=== PATIENT | male | born 1950 | race Caucasian/White ===

== ENCOUNTER 2024-10-25 02:42 | Emergency (ER) | payer MEDICAID, OTHER ==
--- OUTSIDE RECORDS SUMMARY | 2024-10-25 02:51 | XMS REPORT | Continuity of Care Document ---
Author Name Unknown Address [address] [facility]. [address] [place] [address] [facility] thconnect Address [address] 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 Name Role Phone Bonnie Gordon MD Primary Care Physician No, PCP Attending Clinician Unavailable Bonnie Gordon Attending Clinician Unavailable KASI SALAZAR Attending Clinician UnaMAX Haines Attending Clinician Unavailable SARAH BONE Attending Clinician Unavailable RHIANNON SANTIZO Attending Clinician Unavailab Greg Cervantes Attending Clinician DOMITILA Connor Attending Clinician Unavailable ESPERANZA BEAL Attending Clinician Unavailab le LAB90 Attending Clinician Unavailable JACINDA SHARPE Attending Clinician Unavailab le LAB08 Attending Clinician Unavailable ANGELIA LAMA Attending Clinician Unavailable BONNIE GORDON Attending Clinician Unava ilBREEZY Ordonez Attending Clinician Unavailable Hollis Jauregui Attending Clinician Unavailable OCTAVIANO FRIEND Attending Clinician Unavailable ARISTEO HUYNH Attending Clinician Unavailable ALBERTO BRASHER Attending Clinician Unavailchristie STRATTON MD Attending Clinician Unavailab le A-SCAN Attending Clinician Unavailable [id number] Attending Clinician Unavailable DANIEL TUCKER Attending Clinician UnavailCYNTHIA Merida Attending Clinician Unavailable HINA AMARAL Attending Clinician Unavailab FELA Ho Attending Clinician Unavailable ENG Attending Clinician Unavailable SUYAPA MCCRAY Attending Clinician Unavailab le LAB39 Attending Clinician Unavailable LUZ MARIA LOUIS Attending Clinician Unavailable [id number] Attending Clinician Unavailable Alexander CALDERON, Esperanza Attending Clinician [phone] Destniy GODFREY-CAnh Attending Clinician [phone] Ermelinda CALDERON, Carolina Palm Attending Clinician [phone] Rosa Elena Kelly NP Attending Clinician [phone] PROVIDERJULIANA Attending Clinician Unavailable Kaycee COMMUNITY LIVING INSTRUCTOR-CBreezy Attending Clinician [phone] Hollis Jauregui Admitting Clinician Unavailable Payers Payer Name Policy Type Policy Number Effective Date Expirati on Date Source [facility] 16 [id number] 00:00:00 MEDICARE-PART B 5 [id number] 2021 00:00:00 [facility] SUPPLEMENT 4 [id number] 2021 00:00:00 Problems Condition Name Condition Details Condition Category Status Onset Date Resolution Date Last Treatment Date Treating Clinician Comments Source Well adult exam Well adult exam Disease Active 2023-11 0-04 00:00: 00 Norah schafer Chronic diastolic CHF (congestiv e heart failure) (multi HCC) Chronic diastolic CHF (congestiv e heart failure) (multi HCC) Disease Active 8- 00:00: 00 Norah schafer Chronic systolic (congestiv e) heart failure (multi HCC) Chronic systolic (congestiv e) heart failure (multi HCC) Disease Active 8-26 00:00: 00 Norah Seybold - Externa l 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 Disease Active 3-04 00:00: 00 Norah Seybold - Externa l Atrial fibrillati on (multi HCC) Atrial fibrillati on (multi HCC) Disease Active 12-19 00:00: 00 Norah Seybold - Externa l Hypercoagu lable state due to atrial fibrillati on (multi HCC) Hypercoagu lable state due to atrial fibrillati on (multi HCC) Disease Active 12-19 00:00: 00 Norah Seybold - Externa l Chronic anticoagul ation Chronic anticoagul ation Disease Active 12-19 00:00: 00 Norah Seybold - Externa l Renal insufficie ncy Renal insufficie ncy Disease Active 12-19 00:00: 00 Norah Markhamold - Externa l Cataract Cataract Disease Active 06-17 00:00: 00 Norah Seybold - Externa l Seasonal allergic rhinitis due to pollen Seasonal allergic rhinitis due to pollen Disease Active 06-17 00:00: 00 Norah Seybold - Externa l Obstructiv e sleep apnea Obstructiv e sleep apnea Disease Active 06-17 00:00: 00 Norah Seybold - Externa l Risk for falls Risk for falls Disease Active 06-17 00:00: 00 Norah Seybold - Externa l Benign prostatic hyperplasi a with weak urinary stream Benign prostatic hyperplasi a with weak urinary stream Disease Active 04-18 00:00: 00 Norah Seybold - Externa l Immunodefi ciency due to conditions classified elsewhere (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 (multi HCC) Disease Active 01-19 00:00: 00 Norah Seybold - Externa l Bronchitis Bronchitis Disease Active 1- 00:00: 00 Norah Seybold - Externa l Chronic obstructiv e pulmonary disease, unspecifie d COPD type (multi HCC) Chronic obstructiv e pulmonary disease, unspecifie d COPD type (multi HCC) Disease Active 7-13 00:00: 00 Norah Seybold - Externa l Venous stasis dermatitis of both lower extremitie s Venous stasis dermatitis of both lower extremitie s Disease Active 2020-11 00:00: 00 Norah Seybold - Externa l Peripheral edema Peripheral edema Disease Active 2020-11 00:00: 00 Norah Seybold - Externa l Cellulitis of right lower extremity Cellulitis of right lower extremity Disease Active 2020-11 00:00: 00 Norah Seybold - Externa l PVD (periphera l vascular disease) PVD (periphera l vascular disease) Disease Active 2020-11 00:00: 00 Norah Seybold - Externa l Venous stasis dermatitis of both lower extremitie s Venous stasis dermatitis of both lower extremitie s Disease Active 2020-11 00:00: 00 Norah Seybold - Externa l Irregular heart rhythm Irregular heart rhythm Disease Active 2020-11 00:00: 00 Norah Seybold - Externa l DM type 2 with diabetic mixed hyperlipid emia (multi HCC) DM type 2 with diabetic mixed hyperlipid emia (multi HCC) Disease Active 05-19 00:00: 00 Norah Seybold - Externa l Morbid obesity Morbid obesity Disease Active 05-19 00:00: 00 Norah Seybold - Externa l Class 3 severe obesity due to excess calories with serious comorbidit y and body mass index (BMI) of 40.0 to 44.9 in adult Class 3 severe obesity due to excess calories with serious comorbidit y and body mass index (BMI) of 40.0 to 44.9 in adult Disease Active 05-19 00:00: 00 Norah Seybold - Externa l Type 2 diabetes mellitus, without long-term current use of insulin (multi HCC) Type 2 diabetes mellitus, without long-term current use of insulin (multi HCC) Disease Active 05-19 00:00: 00 Norah Seybold - Externa l Hyperlipid emia due to type 2 diabetes mellitus (multi HCC) Hyperlipid emia due to type 2 diabetes mellitus (multi HCC) Disease Active 05-19 00:00: 00 Norah Lazara gilmar Essential hypertensi on Essential hypertensi on Disease Active 05-19 00:00: 00 Norah Lazara gilmar Urinary incontinen ce Urinary incontinen ce Problem [facility] [id number] Injury of left hand, initial encounter Problem [facility] [id number] Pain, joint, hand, left Problem [facility] Lower urinary tract symptoms due to benign prostatic hypertroph y Benign prostatic hyperplasi a (BPH) with straining on urination Problem [facility] [id number] BPH loc w urin obs/LUTS Problem [facility] [id number] Recurrent UTI Problem [facility] Allergies, Adverse Reactions, Alerts Allergy Name Allergy Type Status Severity Reaction(s) Onset Date Inactive Date Treating Clinician Comments Source codeine DA Active U DOES NOT RECALL 2023-11 00:00: 00 [facility] nitrofur antoin DA Active U SHORTNESS OF BREATH 2023-11 00:00: 00 [facility] codeine DA Active U UNKNOWN - 00:00: 00 [facility] Penicill ins DA Active MO HIVES 2-12 00:00: 00 [facility] Codeine Propensi ty to adverse reaction s Active 04-18 00:00: 00 Other reaction( s): Unknown Norahorxana Gonzales - Externa l Nitrofur antoin Propensi ty to adverse reaction s Active 2021-11 0-05 00:00: 00 Other reaction( s): Unknown Norah Gonzales - Externa l Nitrofur antoin Monohyd Macro Propensi ty to adverse reaction s Active Shortness of Breath 9-08 00:00: 00 Norah Tirado Externa l Penicill ins Propensi ty to adverse reaction s Active Hives 6-19 00:00: 00 Norah Gonzales - Externa l Penicill ins Propensi ty to adverse reaction s Active Hives 05-16 00:00: 00 Norah Gonzales codeine codeine Active Unknown [facility] nitrofur antoin nitrofur antoin Active Unknown [facility] Social History Social Habit Start Date Stop Date Quantity Comments Source Gender identity 2021-05-16 10:20:26 Identifies as male gender (finding) Norah Gonzales - External Sexual orientation 2021-05-16 10:20:26 Heterosexual (finding) Norah Gonzales - External Exposure to SARS-CoV-2 (event) Not sure Norah leigh History of tobacco use Current smoker Norah cameron - External Sex Assigned At [facility] Alcoholic beverage intake 2024-08-31 00:00:00 2024-08-31 00:00:00 1 /d Norah Gonzales - External Alcohol intake 2024-02-02 00:00:00 2024-02-02 00:00:00 1 /d Norah Gonzales - External History of Social function 2023-08-09 00:00:00 2023-08-09 00:00:00 Norah Gonzales - External Tobacco use and exposure 2023-04-13 00:00:00 2023-04-13 00:00:00 Smokeless tobacco non-user Norah Gonzales - External Sex 2021-02-24 17:10:48 2021-02-24 17:10:48 Male (finding) Norah Gonzales - External Smoking Status Start Date Stop Date Source Ex-smoker 2023-04-13 00:00:00 2023-04-13 00:00:00 Tyra Gonzales - External Medications Ordered Medication Name Filled Medication Name Start Date Stop Date Current Medication? Ordering Clinician Indication Dosage Frequency Signature (SIG) Comments Components Source Probiotic Product (PROBIOTIC DAILY OR) 2023-11 15:48: 42 Yes Take by mouth Norah schafer FLUTICASONE PROPIONATE, NASAL, 50 MCG/ACT nasal Suspension 2023-11 15:48: 38 08-31 00:00 :00 No 50ug QD Use 1 spray (50 mcg total) in each nostril daily. Norah schafer Diltiazem HCl Coated Beads 360 MG oral Capsule 24 Hour Sustained Release 2023-11 0 00:00: 00 Yes [id number] 360mg QD Take 1 capsule (360 mg total) by mouth daily. Norah schafer Finasteride 5 MG oral Tablet 2023-11 00:00: 00 Yes [id number] 5mg QD Take 1 tablet (5 mg total) by mouth daily. Norah schafer Tirzepatide (Mounjaro) 2.5 MG/0.5ML subcutaneou s Solution Pen-injecto r 2023-11 00:00: 00 Yes [id number] 3 2.5mg Q1W Inject 0.5 mL (2.5 mg total) into the skin once a week. Norah schafer Sacubitril- Valsartan (Entresto) 97-103 MG oral Tablet 2023-11 00:00: 00 Yes [id number] 1{tbl} Q.5D Take 1 tablet by mouth 2 times daily. Norah schafer Montelukast (Singulair) 10 MG oral Tablet tablet 2023-11 00:00: 00 Yes [id number] 10mg QD Take 1 tablet (10 mg total) by mouth nightly. Norah schafer Metoprolol Tartrate (LOPRESSOR) 25 MG oral Tablet 2023-11 00:00: 00 08-31 00:00 :00 Yes [id number] 25mg QD Take 1 tablet (25 mg total) by mouth daily. Norah schafer Probiotic Product (PROBIOTIC DAILY OR) 08-08 14:42: 24 Yes Take by mouth Norah schafer FLUTICASONE PROPIONATE, NASAL, 50 MCG/ACT nasal Suspension 08-08 14:42: 24 Yes 50ug QD Use 1 spray (50 mcg total) in each nostril daily. Norah schafer Probiotic Product (PROBIOTIC DAILY OR) 07-12 14:48: 07 Yes Take by mouth Norah schafer FLUTICASONE PROPIONATE, NASAL, 50 MCG/ACT nasal Suspension 07-12 14:48: 07 Yes 50ug QD Use 1 spray (50 mcg total) in each nostril daily. Norah schafer Tamsulosin HCl 0.4 MG oral Capsule 15 00:00: 00 Yes Take 1 capsule by mouth twice a day. Norah schafer Entresto 97-103 MG oral Tablet 8-13 00:00: 00 08-31 00:00 :00 No Norah schafer Finasteride 5 MG oral Tablet 6-07 00:00: 00 08-31 00:00 :00 No [id number] 5mg QD Take 1 tablet (5 mg total) by mouth daily. Norah schafer Pravastatin Sodium 40 MG oral Tablet 24 00:00: 00 Yes TAKE 1 TABLET DAILY Norah schafer Pravastatin Sodium 40 MG oral Tablet 24 00:00: 00 Yes TAKE 1 TABLET DAILY Norah schafer Pravastatin Sodium 40 MG oral Tablet 24 00:00: 00 Yes TAKE 1 TABLET DAILY Norah schafer Triamterene -HCTZ 37.5-25 MG oral Capsule 03-30 00:00: 00 Yes 1{capsu le} Take 1 capsule by mouth every morning. Norah schafer Triamterene -HCTZ 37.5-25 MG oral Capsule - 00:00: 00 Yes 1{capsu le} Take 1 capsule by mouth every morning. Norah schafer Triamterene -HCTZ 37.5-25 MG oral Capsule 03 00:00: 00 Yes 1{capsu le} Take 1 capsule by mouth every morning. Norah schafer FLUTICASONE PROPIONATE, NASAL, 50 MCG/ACT nasal Suspension 03-28 14:24: 40 Yes 50ug Use 1 spray (50 mcg total) in each nostril daily. Norah schafer Azelastine HCl 137 MCG/SPRAY nasal Solution 4-14 00:00: 00 08-31 00:00 :00 No [id number] 1{spray } Q.5D Use 1 spray in each nostril 2 times daily. Norah schafer Entresto 49-51 MG oral Tablet -11 00:00: 00 08-08 00:00 :00 No 1{tbl} Q.5D Take 1 tablet by mouth 2 times daily. Norah schafer OZEMPIC (0.25 or 0.5 mg/dose) 2 mg/3 mL SQ Solution Pen-Injecto r 18 00:00: 00 08-31 00:00 :00 No [id number] 9102 .25mg Q1W Inject 0.25 mg into the skin once a week. Norah schafer Metoprolol Tartrate (LOPRESSOR) 25 MG oral Tablet 02-07 00:00: 00 Yes 12.5mg QD Take 0.5 tablets (12.5 mg total) by mouth daily. Norah schafer Probiotic Product (PROBIOTIC DAILY OR) 02-01 15:29: 46 Yes Take by mouth Norah schafer FLUTICASONE PROPIONATE, NASAL, 50 MCG/ACT nasal Suspension 02-01 15:29: 46 Yes 50ug Use 1 spray (50 mcg total) in each nostril daily. Norah schafer Triamcinolo ne Acetonide 0.1 % apply externally Cream 02-01 00:00: 00 05-01 00:00 :00 No [id number] Apply to the affected areas of the rash on the back BID for 14 days in a row. Take a break for 3-4 days. Repeat for total of 4 weeks. Avoid overuse to prevent skin thinning and discolorat ion.. Norah schafer Diltiazem HCl Coated Beads 360 MG oral Capsule 24 Hour Sustained Release 01-30 00:00: 00 08-31 00:00 :00 No 360mg QD Take 1 capsule (360 mg total) by mouth daily. Norah schafer Loratadine (CLARITIN) 10 MG oral tablet 01-29 15:12: 36 01-29 00:00 :00 No 10mg Take 1 tablet (10 mg total) by mouth daily. Norah schafer Probiotic Product (PROBIOTIC DAILY OR) 01-29 15:12: 03 Yes Take by mouth Norah schafer FLUTICASONE PROPIONATE, NASAL, 50 MCG/ACT nasal Suspension 01-29 15:12: 03 Yes 50ug Use 1 spray (50 mcg total) in each nostril daily. Norah schafer Azelastine HCl 137 MCG/SPRAY nasal Solution 01-16 00:00: 00 Yes [id number] 1{spray } Use 1 spray in each nostril 2 times daily. Norah schafer Finasteride 5 MG oral Tablet 01-10 00:00: 00 Yes [id number] 5mg Take 1 tablet (5 mg total) by mouth daily. Norah schafer OZEMPIC (0.25 or 0.5 mg/dose) 2 mg/3 mL SQ Solution Pen-Injecto r 12-19 00:00: 00 Yes [id number] 9102 .25mg Inject 0.25 mg into the skin once a week. Norah schafer Metformin HCl 1000 MG oral Tablet 12-19 00:00: 00 Yes [id number] 9102 1000mg QD Take 1 tablet (1,000 mg total) by mouth daily (with breakfast) . Norah schafer Eliquis 5 MG oral Tablet 12-14 00:00: 00 Yes [id number] 5mg Q.5D Take 1 tablet (5 mg total) by mouth 2 times daily. Norah schafer Probiotic Product (PROBIOTIC DAILY OR) 2022-11 14:12: 13 Yes Take by mouth Norah schafer FLUTICASONE PROPIONATE, NASAL, 50 MCG/ACT nasal Suspension 2022-11 14:12: 13 Yes 50ug Use 1 spray (50 mcg total) in each nostril daily. Norah schafer Loratadine (CLARITIN) 10 MG oral tablet 2022-11 14:12: 13 Yes 10mg Take 1 tablet (10 mg total) by mouth daily. Norah schafer Azelastine HCl 0.1 % nasal Solution 2022-11 00:00: 00 Yes [id number] 1{spray } Use 1 spray in each nostril 2 times daily. Norah schafer Probiotic Product (PROBIOTIC DAILY OR) 2022-11 15:03: 25 Yes Take by mouth Norah schafer FLUTICASONE PROPIONATE, NASAL, 50 MCG/ACT nasal Suspension 2022-11 15:03: 25 Yes 50ug Use 1 spray (50 mcg total) in each nostril daily. Norah schafer Loratadine (CLARITIN) 10 MG oral tablet 2022-11 15:03: 25 Yes 10mg Take 1 tablet (10 mg total) by mouth daily. Norah schafer Guaifenesin (Mucinex) 600 MG oral Tablet 12 Hour Sustained Release 2022-11 00:00: 00 Yes [id number] 1200mg Take 2 tablets (1,200 mg total) by mouth 2 times daily. Norah schafer Benzonatate 200 MG oral Capsule 2022-11 00:00: 00 Yes [id number] 200mg Q.[id number] 3D Take 1 capsule (200 mg total) by mouth 3 times daily as needed for cough. Norah schafer Ketoconazol e 2 % apply externally Cream 2022-11 00:00: 00 05-01 00:00 :00 No Apply 1 applicatio n. topically 2 times daily. Norah schafer Hydrocortis one 2.5 % apply externally Cream 2022-11 00:00: 00 05-01 00:00 :00 No Apply 1 applicatio n. topically 2 times daily. Norah schafer Probiotic Product (PROBIOTIC DAILY OR) 2022-11 0 15:32: 11 Yes Take by mouth Norah schafer FLUTICASONE PROPIONATE, NASAL, 50 MCG/ACT nasal Suspension 2022-11 15:32: 11 Yes 50ug Use 1 spray (50 mcg total) in each nostril daily. Norah schafer Loratadine (CLARITIN) 10 MG oral tablet 2022-11 15:32: 11 Yes 10mg Take 1 tablet (10 mg total) by mouth daily. Norah schafer Metformin HCl 1000 MG oral Tablet 2022-11 00:00: 00 12-19 00:00 :00 No [id number] TAKE 1 TABLET EVERY MORNINGAND 1 TABLET IN THE EVENINGWIT H MEALS Norah schafer Azelastine HCl 0.1 % nasal Solution 2022-11 0 00:00: 00 Yes [id number] 1{spray } Use 1 spray in each nostril 2 times daily. Norah schafer Azithromyci n 250 MG oral Tablet 2022-11 00:00: 00 09-07 04:59 :00 No [id number] Take 2 tablets by mouth on day 1 then 1 tablet by mouth daily for 4 days thereafter .. Norah schafer Probiotic Product (PROBIOTIC DAILY OR) 2022-11 13:45: 55 Yes Take by mouth Norah schafer FLUTICASONE PROPIONATE, NASAL, 50 MCG/ACT nasal Suspension 2022-11 13:45: 55 Yes 50ug Use 1 spray (50 mcg total) in each nostril daily. Norah schafer Loratadine (CLARITIN) 10 MG oral tablet 2022-11 13:45: 55 Yes 10mg Take 1 tablet (10 mg total) by mouth daily. Norah schafer Probiotic Product (PROBIOTIC DAILY OR) 2022-11 15:51: 12 Yes Take by mouth Norah schafer FLUTICASONE PROPIONATE, NASAL, 50 MCG/ACT nasal Suspension 2022-11 0 15:51: 12 Yes 50ug Use 1 spray (50 mcg total) in each nostril daily. Norah schafer Loratadine (CLARITIN) 10 MG oral tablet 2022-11 0 15:51: 12 Yes 10mg Take 1 tablet (10 mg total) by mouth daily. Norah schafer Tamsulosin HCl 0.4 MG oral Capsule 08-15 00:00: 00 Yes .4mg Take 1 capsule (0.4 mg total) by mouth every night at bedtime. Norah schafer Triamterene -HCTZ 37.5-25 MG oral Capsule 08-11 00:00: 00 Yes 1{capsu le} Take 1 capsule by mouth every morning. Norah schafer Probiotic Product (PROBIOTIC DAILY OR) 08-10 15:15: 19 Yes Take by mouth Norah schafer FLUTICASONE PROPIONATE, NASAL, 50 MCG/ACT nasal Suspension 08-10 15:15: 19 Yes 50ug Use 1 spray (50 mcg total) in each nostril daily. Norah schafer Loratadine (CLARITIN) 10 MG oral tablet 08-10 15:15: 19 Yes 10mg Take 1 tablet (10 mg total) by mouth daily. Norah schafer Finasteride 5 MG oral Tablet 08-10 00:00: 00 Yes [id number] 5mg TAKE 1 TABLET (5 MG TOTAL) BY MOUTH DAILY. Norah schafer Probiotic Product (PROBIOTIC DAILY OR) 08-05 14:18: 04 Yes Take by mouth Norah schafer FLUTICASONE PROPIONATE, NASAL, 50 MCG/ACT nasal Suspension 08-05 14:18: 04 Yes 50ug Use 1 spray (50 mcg total) in each nostril daily. Norah schafer Loratadine (CLARITIN) 10 MG oral tablet 08-05 14:18: 04 Yes 10mg Take 1 tablet (10 mg total) by mouth daily. Norah schafer Probiotic Product (PROBIOTIC DAILY OR) 08-04 13:55: 20 Yes Take by mouth Norah schafer FLUTICASONE PROPIONATE, NASAL, 50 MCG/ACT nasal Suspension 08-04 13:55: 20 Yes 50ug Use 1 spray (50 mcg total) in each nostril daily. Norah schafer Loratadine (CLARITIN) 10 MG oral tablet 08-04 13:55: 20 Yes 10mg Take 1 tablet (10 mg total) by mouth daily. Norah schafer Moxifloxaci n HCl 0.5 % ophthalmic Solution 08-04 00:00: 00 10-10 00:00 :00 No 1[drp] Place 1 drop into the right eye 4 times daily. Norah schafer prednisoLON E Acetate 1 % ophthalmic Suspension 08-04 00:00: 00 10-10 00:00 :00 No 1[drp] Place 1 drop into the right eye 4 times daily. Norah schafer KETOROLAC TROMETHAMIN E, OPHTH, 0.5 % ophthalmic Solution 08-04 00:00: 00 10-10 00:00 :00 No 1[drp] Place 1 drop into the right eye 4 times daily. Norah schafer Loratadine (CLARITIN) 10 MG oral tablet 06-17 15:16: 51 Yes 10mg Take 1 tablet (10 mg total) by mouth daily Norah schafer FLUTICASONE PROPIONATE, NASAL, 50 MCG/ACT nasal Suspension 06-17 15:16: 42 Yes 50ug Use 1 spray (50 mcg total) in each nostril daily Norah schafer Mometasone Furoate 50 MCG/ACT nasal Suspension 06-17 15:16: 35 06-17 00:00 :00 No every 24 hours Norah schafer OZEMPIC (0.25 or 0.5 mg/dose) 2 mg/3 mL SQ Solution Pen-Injecto r 06-13 00:00: 00 12-19 00:00 :00 No [id number] .5mg Inject 0.5 mg into the skin once a week Norah schafer Albuterol HFA 108 (90 Base) MCG/ACT IN AERS 05-30 00:00: 00 Yes [id number] 2{puff} Q.25D Inhale 2 puffs into the lungs every 6 hours as needed for shortness of breath Norah schafer Irbesartan 300 MG oral Tablet 05-08 00:00: 00 Yes TAKE 1 TABLET DAILY Norah schafer Probiotic Product (PROBIOTIC DAILY OR) 05-06 14:20: 07 Yes Take by mouth Norah schafer Mometasone Furoate 50 MCG/ACT nasal Suspension 05-06 14:20: 07 Yes every 24 hours Norah schafer Probiotic Product (PROBIOTIC DAILY OR) 05-02 15:29: 35 Yes Take by mouth Norah schafer Mometasone Furoate 50 MCG/ACT nasal Suspension 05-02 15:29: 35 Yes every 24 hours Norah schafer Diltiazem HCl Coated Beads 360 MG oral Capsule 24 Hour Sustained Release 05-02 00:00: 00 Yes TAKE 1 CAPSULE DAILY Norah schafer Pravastatin Sodium 40 MG oral Tablet 05-02 00:00: 00 Yes TAKE 1 TABLET DAILY Norah schafer ASPIRIN OR 04-18 15:21: 53 04-18 00:00 :00 No Take by mouth Norah schafer Probiotic Product (PROBIOTIC DAILY OR) 04-18 15:09: 04 Yes Take by mouth Norah schafer Aspirin 325 MG oral Tablet 04-18 00:00: 00 Yes [id number] 325mg QD Take 1 tablet (325 mg total) by mouth daily Norah schafer Budeson-Gly copyrrol-Fo rmoterol (Breztri Aerosphere) 160-9-4.8 MCG/ACT inhalation Aerosol 04-18 00:00: 00 Yes [id number] 1{puff} QD Inhale 1 puff into the lungs daily Norah schafer Probiotic Product (PROBIOTIC DAILY OR) 17 13:54: 32 Yes Take by mouth Norah schafer ASPIRIN OR 04-13 13:54: 31 Yes Take by mouth Norah schafer Metformin HCl 1000 MG oral Tablet 17 00:00: 00 Yes [id number] 1000mg Take 1 tablet (1,000 mg total) by mouth in the morning and 1 tablet (1,000 mg total) in the evening. Take with meals. Norah schafer OZEMPIC (0.25 or 0.5 mg/dose) 2 mg/3 mL SQ Solution Pen-Injecto r 17 00:00: 00 Yes [id number] .5mg Inject 0.5 mg into the skin once a week Norah schafer Tamsulosin HCl 0.4 MG oral Capsule 404 00:00: 00 Yes .4mg Take 1 capsule (0.4 mg total) by mouth every night at bedtime Norah schafer Alfuzosin HCl 10 MG oral TABLET SR 24 HR 30 00:00: 00 Yes [id number] 10mg Take 1 tablet (10 mg total) by mouth daily Norah schafer Finasteride 5 MG oral Tablet 30 00:00: 00 Yes [id number] 5mg Take 1 tablet (5 mg total) by mouth daily Norah schafer OZEMPIC (0.25 or 0.5 mg/dose) 2 mg/1.5 mL SQ Solution Pen-Injecto r 02-22 00:00: 00 Yes [id number] .5mg Inject 0.5 mg into the skin once a week Norah schafer ASPIRIN OR -20 13:13: 06 Yes Take by mouth Norah schafer Metformin HCl 1000 MG oral Tablet 3-10 00:00: 00 Yes [id number] 1000mg Take 1 tablet (1,000 mg total) by mouth in the morning and 1 tablet (1,000 mg total) in the evening. Take with meals. Norah schafer OZEMPIC (0.25 or 0.5 mg/dose) 2 mg/1.5 mL SQ Solution Pen-Injecto r 3- 00:00: 00 Yes [id number] .25mg Inject 0.25 mg into the skin once a week Norah schafer Pravastatin Sodium 40 MG oral Tablet - 00:00: 00 Yes 40mg Take 1 tablet (40 mg total) by mouth daily Norah schafer ASPIRIN OR 01-27 14:16: 29 Yes Take by mouth Norah schafer Tamsulosin HCl 0.4 MG oral Capsule 01-25 00:00: 00 02-24 00:00 :00 No [id number] .4mg Take 1 capsule (0.4 mg total) by mouth every night at bedtime Norah schafer TRIMETHOPRI M-SULFAMETH OXAZOLE (BACTRIM DS) 800-160 MG oral Tablet 01-18 00:00: 00 01-26 05:59 :00 No [id number] 1{tbl} Take 1 tablet by mouth 2 times daily for 7 days Norah schafer ASPIRIN OR 01-03 15:03: 47 Yes Take by mouth Norah schafer OZEMPIC (0.25 or 0.5 mg/dose) 2 mg/1.5 mL SQ Solution Pen-Injecto r 01-03 00:00: 00 Yes [id number] .25mg Inject 0.25 mg into the skin once a week Norah schafer ASPIRIN OR 12-29 15:12: 09 Yes Take by mouth Norah schafer Benzonatate 200 MG oral Capsule - 00:00: 00 Yes [id number] 200mg Q.[id number] 3D Take 1 capsule (200 mg total) by mouth 3 times daily as needed for cough Norah schafer Cipro 500 MG Cipro 500 MG - 00:00: 00 12-25 00:00 :00 No 1{table t} BID Cipro 500 MG Cipro 500 MG Cipro 500 MG 12-18 00:00: 00 12-25 00:00 :00 No 1{table t} BID Cipro 500 MG ASPIRIN OR 12-06 16:19: 27 Yes Take by mouth Norah schafer predniSONE (DELTASONE) 10 MG oral tablet 12-06 00:00: 00 Yes [id number] 10mg Take 1 tablet (10 mg total) by mouth daily Norah schafer Doxycycline Hyclate 100 MG oral Capsule 12-06 00:00: 00 12-14 05:59 :00 No [id number] 100mg Take 1 capsule (100 mg total) by mouth 2 times daily for 7 days Norah schafer Benzonatate 200 MG oral Capsule 11-30 00:00: 00 Yes [id number] 200mg Q.[id number] 3D Take 1 capsule (200 mg total) by mouth 3 times daily as needed for cough Norah schafer Azithromyci n 250 MG oral Tablet 11-29 00:00: 00 Yes [id number] Take 2 tablets by mouth on day 1 then 1 tablet by mouth daily for 4 days thereafter . Norah schafer Metformin HCl 1000 MG oral Tablet 2021-11 00:00: 00 Yes [id number] 1000mg Take 1 tablet (1,000 mg total) by mouth in the morning and 1 tablet (1,000 mg total) in the evening. Take with meals. Norah schafer ASPIRIN OR 2021-11 14:32: 15 Yes Take by mouth Norah schafer Hydrocortis one 2.5 % apply externally Cream 2021-11 00:00: 00 06-17 00:00 :00 No [id number] Apply 1 applicatio n topically 2 times daily APPLY TO AFFECTED AREA Norah schafer Dapaglifloz in Propanediol (Farxiga) 5 MG oral Tablet 2021-11 00:00: 00 02-14 00:00 :00 No [id number] 1{tbl} Take 1 tablet by mouth daily Norah schafer Triamterene -HCTZ 37.5-25 MG oral Capsule 2021-11 0-14 00:00: 00 Yes TAKE 1 CAPSULE EVERY MORNING Norah schafer Hydrocortis one 2.5 % apply externally Cream 2021-11 0-13 00:00: 00 11-05 00:00 :00 No [id number] APPLY TO AFFECTED AREA TWICE A DAY Norah schafer KETOCONAZOL E, TOPICAL, 2 % apply externally Shampoo 08-04 00:00: 00 06-17 00:00 :00 No [id number] Lather onto buttocks and upper back, leave on for 5 minutes, wash off- do this 3-5/week Norah schafer Ketoconazol e 2 % apply externally Cream 08-04 00:00: 00 01-03 00:00 :00 No [id number] Apply to affected area twice a day Norah schafer predniSONE (DELTASONE) 10 MG oral tablet -05 00:00: 00 12-06 00:00 :00 No [id number] Take 4 tabs for 3 days, then take 3 tabs for 3 days, then take 2 tabs For 3 days, then 1 tab for 3 days. Norah schafer Albuterol HFA 108 (90 Base) MCG/ACT IN AERS -03 00:00: 00 Yes [id number] 2{puff} Q.25D Inhale 2 puffs into the lungs every 6 hours as needed for shortness of breath Norah schafer Diltiazem HCl Coated Beads 360 MG oral Capsule 24 Hour Sustained Release 8- 00:00: 00 Yes TAKE 1 CAPSULE DAILY Norah schafer Alfuzosin HCl 10 MG oral TABLET SR 24 HR 7-18 00:00: 00 01-25 00:00 :00 No TAKE 1 TABLET IMMEDIATEL Y AFTER THE SAME MEAL ONCE A DAY ORALLY Norah schafer Benzonatate (Tessalon Perles) 100 MG oral Capsule 05-11 00:00: 00 Yes [id number] 100mg Q.[id number] 3D Take 1 capsule (100 mg total) by mouth 3 times daily as needed for cough Norah schafer Cetirizine (ZyrTEC Allergy) 10 MG oral Tablet 05-11 00:00: 00 Yes [id number] 10mg Take 1 tablet (10 mg total) by mouth daily Norah schafer Pravastatin Sodium 40 MG oral Tablet 03-15 00:00: 00 Yes 40mg Take 1 tablet (40 mg total) by mouth daily Norah schafer Metformin HCl 1000 MG oral Tablet 03-15 00:00: 00 Yes 1000mg Take 1 tablet (1,000 mg total) by mouth in the morning and 1 tablet (1,000 mg total) in the evening. Norah schafer Irbesartan 300 MG oral Tablet 03-15 00:00: 00 Yes 300mg Take 1 tablet (300 mg total) by mouth daily Norah schafer ASPIRIN OR 2020-11 17:13: 59 Yes Take by mouth Norah Gonzales Cetirizine (ZyrTEC Allergy) 10 MG oral Tablet 2020-11 17:13: 59 Yes 10mg Take 10 mg by mouth daily Norah Gonzales Phenazopyri dine HCl 200 MG oral Tablet 2020-11 00:00: 00 Yes [id number] 200mg Q.[id number] 3D Take 1 tablet (200 mg total) by mouth 3 times daily as needed for pain Norah Gonzales TRIMETHOPRI M-SULFAMETH OXAZOLE 800-160 MG oral Tablet 2020-11 00:00: 00 09-26 04:59 :00 No [id number] 1{tbl} Take 1 tablet by mouth 2 times daily for 10 days Norah Gonzales ASPIRIN OR 2020-11- 14:04: 00 Yes Take by mouth Norah Gonzales Cetirizine (ZyrTEC Allergy) 10 MG oral Tablet 2020-11 14:04: 00 Yes 10mg Take 10 mg by mouth daily Norah Gonzales Clindamycin HCl 300 MG oral Capsule 2020-11 00:00: 00 04-01 00:00 :00 No [id number] 300mg Take 1 capsule (300 mg total) by mouth 3 times daily Norah Gonzales Budeson-Gly copyrrol-Fo rmoterol (Breztri Aerosphere) 160-9-4.8 MCG/ACT inhalation Aerosol 2020-11 00:00: 00 04-18 00:00 :00 No Norah Gonzales - Externa l Benzonatate (Tessalon Perles) 100 MG oral Capsule 07-22 00:00: 00 04-01 00:00 :00 No 100mg Q.[id number] 3D Take 1 capsule (100 mg total) by mouth 3 times daily as needed for cough Norah Gonzales Irbesartan 300 MG oral Tablet 07-20 00:00: 00 Yes 300mg Take 1 tablet (300 mg total) by mouth daily Norah Gonzales Metformin HCl 1000 MG oral Tablet 07-20 00:00: 00 Yes 1000mg Take 1 tablet (1,000 mg total) by mouth 2 times daily Norah Gonzales Pravastatin Sodium 40 MG oral Tablet 07-20 00:00: 00 Yes 40mg Take 1 tablet (40 mg total) by mouth daily Norah Gonzales Carvedilol 6.25 MG oral Tablet 07-20 00:00: 00 Yes 6.25mg Take 1 tablet (6.25 mg total) by mouth daily Norah Gonzales Dapaglifloz in Propanediol (Farxiga) 5 MG oral Tablet 07-20 00:00: 00 Yes [id number] 5mg Take 5 mg by mouth daily Norah Gonzales Diltiazem HCl Coated Beads 360 MG oral Capsule 24 Hour Sustained Release 07-20 00:00: 00 Yes 360mg Take 1 capsule (360 mg total) by mouth daily Norah Gonzales Triamterene -HCTZ 37.5-25 MG oral Capsule 07-20 00:00: 00 Yes 1{capsu le} Take 1 capsule by mouth every morning Norah Gonzales ASPIRIN OR 07-02 15:30: 18 Yes Take by mouth Norah Gonzales Cetirizine (ZyrTEC Allergy) 10 MG oral Tablet 07-02 15:30: 18 Yes 10mg Take 10 mg by mouth daily Norah Gonzales Albuterol HFA 108 (90 Base) MCG/ACT IN AERS 06-04 00:00: 00 Yes [id number] 2{puff} Q4H Inhale 2 puffs into the lungs every 4 hours as needed for wheezing Norah Gonzales dilTIAZem HCl dilTIAZem HCl No dilTIAZem HCl Cetirizine HCl 10 MG Cetirizine HCl 10 MG No 1{table t_as_ne eded} QD Cetirizine HCl 10 MG Carvedilol 6.25 MG Carvedilol 6.25 MG No 1{table t_with_ food} BID Carvedilol 6.25 MG Aspirin 81 81 MG Aspirin 81 81 MG No 1{table t} QD Aspirin 81 81 MG Irbesartan 150 MG Irbesartan 150 MG No 1{table t} QD Irbesartan 150 MG Albuterol Sulfate HFA 108 (90 Base) MCG/ACT Albuterol Sulfate HFA 108 (90 Base) MCG/ACT No 1{puff_ as_need ed} 6xD Albuterol Sulfate HFA 108 (90 Base) MCG/ACT metFORMIN HCl 1000 MG metFORMIN HCl 1000 MG No 1{table t_with_ a_meal} QD metFORMIN HCl 1000 MG Irbesartan 150 MG Irbesartan 150 MG No 1{table t} QD Irbesartan 150 MG dilTIAZem HCl dilTIAZem HCl No dilTIAZem HCl Carvedilol 6.25 MG Carvedilol 6.25 MG No 1{table t_with_ food} BID Carvedilol 6.25 MG Breztri Aerosphere 160-9-4.8 MCG/ACT Breztri Aerosphere 160-9-4.8 MCG/ACT No 2{puffs } BID Breztri Aerosphere 160-9-4.8 MCG/ACT Aspirin 81 81 MG Aspirin 81 81 MG No 1{table t} QD Aspirin 81 81 MG Farxiga 5 MG Farxiga 5 MG No 1{table t} QD Farxiga 5 MG Cetirizine HCl 10 MG Cetirizine HCl 10 MG No 1{table t_as_ne eded} QD Cetirizine HCl 10 MG Albuterol Sulfate HFA 108 (90 Base) MCG/ACT Albuterol Sulfate HFA 108 (90 Base) MCG/ACT No 1{puff_ as_need ed} 6xD Albuterol Sulfate HFA 108 (90 Base) MCG/ACT metFORMIN HCl 1000 MG metFORMIN HCl 1000 MG No 1{table t_with_ a_meal} QD metFORMIN HCl 1000 MG Irbesartan 150 MG Irbesartan 150 MG No 1{table t} QD Irbesartan 150 MG dilTIAZem HCl dilTIAZem HCl No dilTIAZem HCl Carvedilol 6.25 MG Carvedilol 6.25 MG No 1{table t_with_ food} BID Carvedilol 6.25 MG Breztri Aerosphere 160-9-4.8 MCG/ACT Breztri Aerosphere 160-9-4.8 MCG/ACT No 2{puffs } BID Breztri Aerosphere 160-9-4.8 MCG/ACT Aspirin 81 81 MG Aspirin 81 81 MG No 1{table t} QD Aspirin 81 81 MG Farxiga 5 MG Farxiga 5 MG No 1{table t} QD Farxiga 5 MG Cetirizine HCl 10 MG Cetirizine HCl 10 MG No 1{table t_as_ne eded} QD Cetirizine HCl 10 MG Albuterol Sulfate HFA 108 (90 Base) MCG/ACT Albuterol Sulfate HFA 108 (90 Base) MCG/ACT No 1{puff_ as_need ed} 6xD Albuterol Sulfate HFA 108 (90 Base) MCG/ACT metFORMIN HCl 1000 MG metFORMIN HCl 1000 MG No 1{table t_with_ a_meal} QD metFORMIN HCl 1000 MG Carvedilol 6.25 MG Carvedilol 6.25 MG No 1{table t_with_ food} BID Carvedilol 6.25 MG dilTIAZem HCl dilTIAZem HCl No dilTIAZem HCl Aspirin 81 81 MG Aspirin 81 81 MG No 1{table t} QD Aspirin 81 81 MG Irbesartan 150 MG Irbesartan 150 MG No 1{table t} QD Irbesartan 150 MG Farxiga 5 MG Farxiga 5 MG No 1{table t} QD Farxiga 5 MG Mometasone Furoate 50 MCG/ACT Mometasone Furoate 50 MCG/ACT No 2{spray s_in_ea ch_nost ril} QD Mometasone Furoate 50 MCG/ACT Breztri Aerosphere 160-9-4.8 MCG/ACT Breztri Aerosphere 160-9-4.8 MCG/ACT No 2{puffs } BID Breztri Aerosphere 160-9-4.8 MCG/ACT Cetirizine HCl 10 MG Cetirizine HCl 10 MG No 1{table t_as_ne eded} QD Cetirizine HCl 10 MG Albuterol Sulfate HFA 108 (90 Base) MCG/ACT Albuterol Sulfate HFA 108 (90 Base) MCG/ACT No 1{puff_ as_need ed} 6xD Albuterol Sulfate HFA 108 (90 Base) MCG/ACT Irbesartan 150 MG Irbesartan 150 MG No 1{table t} QD Irbesartan 150 MG Pravastatin Sodium 40 MG Pravastatin Sodium 40 MG No 1{table t} QD Pravastati n Sodium 40 MG Farxiga 5 MG Farxiga 5 MG No 1{table t} QD Farxiga 5 MG Albuterol Sulfate HFA 108 (90 Base) MCG/ACT Albuterol Sulfate HFA 108 (90 Base) MCG/ACT No 1{puff_ as_need ed} 6xD Albuterol Sulfate HFA 108 (90 Base) MCG/ACT Carvedilol 6.25 MG Carvedilol 6.25 MG No 1{table t_with_ food} BID Carvedilol 6.25 MG Aspirin 81 81 MG Aspirin 81 81 MG No 1{table t} QD Aspirin 81 81 MG Breztri Aerosphere 160-9-4.8 MCG/ACT Breztri Aerosphere 160-9-4.8 MCG/ACT No 2{puffs } BID Breztri Aerosphere 160-9-4.8 MCG/ACT Mometasone Furoate 50 MCG/ACT Mometasone Furoate 50 MCG/ACT No 2{spray s_in_ea ch_nost ril} QD Mometasone Furoate 50 MCG/ACT metFORMIN HCl 1000 MG metFORMIN HCl 1000 MG No 1{table t_with_ a_meal} QD metFORMIN HCl 1000 MG Probiotic Probiotic No Probiotic Cetirizine HCl 10 MG Cetirizine HCl 10 MG No 1{table t_as_ne eded} QD Cetirizine HCl 10 MG Alfuzosin HCl ER 10 MG Alfuzosin HCl ER 10 MG 02-28 00:00 :00 No QD Alfuzosin HCl ER 10 MG Alfuzosin HCl ER 10 MG Alfuzosin HCl ER 10 MG 02-28 00:00 :00 No QD Alfuzosin HCl ER 10 MG Immunizations Ordered Immunization Name Filled Immunization Name Date Status Comments Source Influenza Virus Vaccine, High Dose, Age 65 And Up 2022-09-01 00:00:00 Completed Norah Seybold - External Influenza Virus Vaccine, Quadrivalent, High Dose, Age 65 And Up 2022-09-01 00:00:00 Completed Norah Seybold - External Influenza Virus Vaccine, High Dose, Age 65 And Up 2022-09-01 00:00:00 Completed Norah Seybold - External Influenza Virus Vaccine, Quadrivalent, High Dose, Age 65 And Up 2022-09-01 00:00:00 Completed Norah Seybold - External Influenza Virus Vaccine, High Dose, Age 65 And Up 2022-09-01 00:00:00 Completed Norah Seybold - External Influenza Virus Vaccine, High Dose, Age 65 And Up 2022-09-01 00:00:00 Completed Norah Seybold - External Influenza Virus Vaccine, High Dose, Age 65 And Up 2022-09-01 00:00:00 Completed Norah Seybold - External Influenza Virus Vaccine, Quadrivalent, High Dose, Age 65 And Up 2022-09-01 00:00:00 Completed Norah Seybold - External Influenza Virus Vaccine, High Dose, Age 65 And Up 2022-09-01 00:00:00 Completed Norah Seybold - External Influenza Virus Vaccine, Quadrivalent, High Dose, Age 65 And Up 2022-09-01 00:00:00 Completed Norah Seybold - External Influenza Virus Vaccine, High Dose, Age 65 And Up 2022-09-01 00:00:00 Completed Norah Seybold - External Influenza Virus Vaccine, Quadrivalent, High Dose, Age 65 And Up 2022-09-01 00:00:00 Completed Norah Seybold - External Influenza Virus Vaccine, High Dose, Age 65 And Up 2022-09-01 00:00:00 Completed Norah Seybold - External Influenza Virus Vaccine, Quadrivalent, High Dose, Age 65 And Up 2022-09-01 00:00:00 Completed Norah Seybold - External Influenza Virus Vaccine, High Dose, Age 65 And Up 2022-09-01 00:00:00 Completed Norah Seybold - External Influenza Virus Vaccine, Quadrivalent, High Dose, Age 65 And Up 2022-09-01 00:00:00 Completed Norah Seybold - External Influenza Virus Vaccine, High Dose, Age 65 And Up 2022-09-01 00:00:00 Completed Norah Seybold - External Influenza Virus Vaccine, Quadrivalent, High Dose, Age 65 And Up 2022-09-01 00:00:00 Completed Norah Seybold - External Influenza Virus Vaccine, High Dose, Age 67 And 2022-09-01 00:00:00 Completed Norah Seybold - External Influenza Virus Vaccine, Quadrivalent, High Dose, Age 67 And 2022-09-01 00:00:00 Completed Norah Seybold - External Influenza Virus Vaccine, High Dose, Age 67 And 2022-09-01 00:00:00 Completed Norah Seybold - External Influenza Virus Vaccine, Quadrivalent, High Dose, Age 65 And Up 2022-09-01 00:00:00 Completed Norah Seybold - External Influenza Virus Vaccine, High Dose, Age 67 And 2022-09-01 00:00:00 Completed Norah Seybold - External Influenza Virus Vaccine, Quadrivalent, High Dose, Age 65 And Up 2022-09-01 00:00:00 Completed Norah Seybold - External Influenza Virus Vaccine, High Dose, Age 65 And Up 2022-09-01 00:00:00 Completed Norah Seybold - External Influenza Virus Vaccine, Quadrivalent, High Dose, Age 65 And Up 2022-09-01 00:00:00 Completed Norah Seybold - External Influenza Virus Vaccine, High Dose, Age 65 And Up 2022-09-01 00:00:00 Completed Norah Seybold - External Influenza Virus Vaccine, Quadrivalent, High Dose, Age 65 And Up 2022-09-01 00:00:00 Completed Norah Seybold - External Influenza Virus Vaccine, High Dose, Age 65 And Up 2022-09-01 00:00:00 Completed Norah Seybold - External Influenza Virus Vaccine, Quadrivalent, High Dose, Age 65 And Up 2022-09-01 00:00:00 Completed Norah Seybold - External Influenza Virus Vaccine, High Dose, Age 65 And Up 2022-09-01 00:00:00 Completed Norah Seybold - External Influenza Virus Vaccine, Quadrivalent, High Dose, Age 65 And Up 2022-09-01 00:00:00 Completed Norah Seybold - External Influenza Virus Vaccine, High Dose, Age 65 And Up 2022-09-01 00:00:00 Completed Norah Seybold - External Influenza Virus Vaccine, Quadrivalent, High Dose, Age 65 And Up 2022-09-01 00:00:00 Completed Norah Seybold - External COVID-19 VACCINE PFIZER 12+ ([employer] cap) 2022-02-25 00:00:00 Completed Norah Seybold - External COVID-19 VACCINE PFIZER 12+ ([employer] cap) 2022-02-25 00:00:00 Completed Norah Seybold - External COVID-19 VACCINE PFIZER 12+ ([employer] cap) 2022-02-25 00:00:00 Completed Norah Seybold COVID-19 VACCINE PFIZER 12+ ([employer] cap) 2022-02-25 00:00:00 Completed Norah Seybold - External COVID-19 VACCINE PFIZER 12+ ([employer] cap) 2022-02-25 00:00:00 Completed Norah Seybold - External COVID-19 VACCINE PFIZER 12+ ([employer] cap) 2022-02-25 00:00:00 Completed Norah Seybold - External COVID-19 VACCINE PFIZER 12+ ([employer] cap) 2022-02-25 00:00:00 Completed Norah Seybold - External COVID-19 VACCINE PFIZER 12+ ([employer] cap) 2022-02-25 00:00:00 Completed Norah Seybold - External COVID-19 VACCINE PFIZER 12+ ([employer] cap) 2022-02-25 00:00:00 Completed Norah Seybold - External COVID-19 VACCINE PFIZER 12+ ([employer] cap) 2022-02-25 00:00:00 Completed Norah Seybold - External COVID-19 VACCINE PFIZER 12+ ([employer] cap) 2022-02-25 00:00:00 Completed Norah Seybold - External COVID-19 VACCINE PFIZER 12+ ([employer] cap) 2022-02-25 00:00:00 Completed Norah Seybold - External COVID-19 VACCINE PFIZER 12+ ([employer] cap) 2022-02-25 00:00:00 Completed Norah Seybold - External COVID-19 VACCINE PFIZER 12+ ([employer] cap) 2022-02-25 00:00:00 Completed Norah Seybold - External COVID-19 VACCINE PFIZER 12+ ([employer] cap) 2022-02-25 00:00:00 Completed Norah Seybold - External COVID-19 VACCINE PFIZER 12+ ([employer] cap) 2022-02-25 00:00:00 Completed Norah Seybold - External COVID-19 VACCINE PFIZER 12+ ([employer] cap) 2022-02-25 00:00:00 Completed Norah Seybold - External COVID-19 VACCINE PFIZER 12+ ([employer] cap) 2022-02-25 00:00:00 Completed Norah Seybold - External COVID-19 VACCINE PFIZER 12+ ([employer] cap) 2022-02-25 00:00:00 Completed Norah Seybold - External Covid-19 Vaccine (Pfizer), Mrna-lnp, Gume Protein, Pf, 30mcg/0.3ml,IM 2021-09-25 00:00:00 Completed Norah Seybold - External Covid-19 Vaccine (Pfizer), Mrna-lnp, Gume Protein, Pf, 30mcg/0.3ml,IM 2021-09-25 00:00:00 Completed Norah Seybold - External Covid-19 Vaccine (Pfizer), Mrna-lnp, Gume Protein, Pf, 30mcg/0.3ml,IM 2021-09-25 00:00:00 Completed Norah Seybold Covid-19 Vaccine (Pfizer), Mrna-lnp, Gume Protein, Pf, 30mcg/0.3ml,IM 2021-09-25 00:00:00 Completed Norah Seybold - External Covid-19 Vaccine (Pfizer), Mrna-lnp, Gume Protein, Pf, 30mcg/0.3ml,IM 2021-09-25 00:00:00 Completed Norah Seybold - External Covid-19 Vaccine (Pfizer), Mrna-lnp, Gume Protein, Pf, 30mcg/0.3ml,IM 2021-09-25 00:00:00 Completed Norah Seybold - External Covid-19 Vaccine (Pfizer), Mrna-lnp, Gume Protein, Pf, 30mcg/0.3ml,IM 2021-09-25 00:00:00 Completed Norah Seybold - External Covid-19 Vaccine (Pfizer), Mrna-lnp, Gume Protein, Pf, 30mcg/0.3ml,IM 2021-09-25 00:00:00 Completed Norah Seybold - External Covid-19 Vaccine (Pfizer), Mrna-lnp, Gume Protein, Pf, 30mcg/0.3ml,IM 2021-09-25 00:00:00 Completed Norah Seybold - External Covid-19 Vaccine (Pfizer), Mrna-lnp, Gume Protein, Pf, 30mcg/0.3ml,IM 2021-09-25 00:00:00 Completed Norah Seybold - External Covid-19 Vaccine (Pfizer), Mrna-lnp, Gume Protein, Pf, 30mcg/0.3ml,IM 2021-09-25 00:00:00 Completed Norah Seybold - External Covid-19 Vaccine (Pfizer), Mrna-lnp, Gume Protein, Pf, 30mcg/0.3ml,IM 2021-09-25 00:00:00 Completed Norah Seybold - External Covid-19 Vaccine (Pfizer), Mrna-lnp, Gume Protein, Pf, 30mcg/0.3ml,IM 2021-09-25 00:00:00 Completed Norah Seybold - External Covid-19 Vaccine (Pfizer), Mrna-lnp, Gume Protein, Pf, 30mcg/0.3ml,IM 2021-09-25 00:00:00 Completed Norah Seybold - External Covid-19 Vaccine (Pfizer), Mrna-lnp, Gume Protein, Pf, 30mcg/0.3ml,IM 2021-09-25 00:00:00 Completed Norah Seybold - External Covid-19 Vaccine (Pfizer), Mrna-lnp, Gume Protein, Pf, 30mcg/0.3ml,IM 2021-09-25 00:00:00 Completed Norah Seybold - External Covid-19 Vaccine (Pfizer), Mrna-lnp, Gume Protein, Pf, 30mcg/0.3ml,IM 2021-09-25 00:00:00 Completed Norah Seybold - External Covid-19 Vaccine (Pfizer), Mrna-lnp, Gume Protein, Pf, 30mcg/0.3ml,IM 2021-09-25 00:00:00 Completed Norah Seybold - External Covid-19 Vaccine (Pfizer), Mrna-lnp, Gume Protein, Pf, 30mcg/0.3ml,IM 2021-09-25 00:00:00 Completed Norah Seybold - External Influenza Virus Vaccine, Quadrivalent, High Dose, Age 65 And Up 2021-08-20 00:00:00 Completed Norah Seybold - External Influenza Virus Vaccine, Quadrivalent, High Dose, Age 65 And Up 2021-08-20 00:00:00 Completed Norah Seybold - External Influenza Virus Vaccine, Quadrivalent, High Dose, Age 65 And Up 2021-08-20 00:00:00 Completed Norah Seybold Influenza Virus Vaccine, Quadrivalent, High Dose, Age 65 And Up 2021-08-20 00:00:00 Completed Norah Seybold Influenza Virus Vaccine, Quadrivalent, High Dose, Age 65 And Up 2021-08-20 00:00:00 Completed Norah Seybold Influenza Virus Vaccine, Quadrivalent, High Dose, Age 65 And Up 2021-08-20 00:00:00 Completed Norah Seybold - External Influenza Virus Vaccine, Quadrivalent, High Dose, Age 65 And Up 2021-08-20 00:00:00 Completed Norah Seybold - External Influenza Virus Vaccine, Quadrivalent, High Dose, Age 65 And Up 2021-08-20 00:00:00 Completed Norah Seybold - External Influenza Virus Vaccine, Quadrivalent, High Dose, Age 65 And Up 2021-08-20 00:00:00 Completed Norah Seybold - External Influenza Virus Vaccine, Quadrivalent, High Dose, Age 65 And Up 2021-08-20 00:00:00 Completed Norah Seybold - External Influenza Virus Vaccine, Quadrivalent, High Dose, Age 65 And Up 2021-08-20 00:00:00 Completed Norah Seybold - External Influenza Virus Vaccine, Quadrivalent, High Dose, Age 65 And Up 2021-08-20 00:00:00 Completed Norah Seybold - External Influenza Virus Vaccine, Quadrivalent, High Dose, Age 65 And Up 2021-08-20 00:00:00 Completed Norah Seybold - External Influenza Virus Vaccine, Quadrivalent, High Dose, Age 65 And Up 2021-08-20 00:00:00 Completed Norah Seybold - External Influenza Virus Vaccine, Quadrivalent, High Dose, Age 65 And Up 2021-08-20 00:00:00 Completed Norah Seybold - External Influenza Virus Vaccine, Quadrivalent, High Dose, Age 65 And Up 2021-08-20 00:00:00 Completed Norah Seybold - External Influenza Virus Vaccine, Quadrivalent, High Dose, Age 65 And Up 2021-08-20 00:00:00 Completed Norah Seybold - External Influenza Virus Vaccine, Quadrivalent, High Dose, Age 65 And Up 2021-08-20 00:00:00 Completed Norah Seybold - External Influenza Virus Vaccine, Quadrivalent, High Dose, Age 65 And Up 2021-08-20 00:00:00 Completed Norah Seybold - External Influenza Virus Vaccine, Quadrivalent, High Dose, Age 65 And Up 2021-08-20 00:00:00 Completed Norah Seybold - External Influenza Virus Vaccine, Quadrivalent, High Dose, Age 65 And Up 2021-08-20 00:00:00 Completed Norah Seybold - External Covid-19 Vaccine Moderna (Spikevax), Mrna-lnp, Guem Protein, Pf 2021-01-02 00:00:00 Completed Norah Seybold - External Covid-19 Vaccine Moderna (Spikevax), Mrna-lnp, Gume Protein, Pf 2021-01-02 00:00:00 Completed Norah Seybold - External Covid-19 Vaccine (Moderna), Mrna-lnp, Gume Protein, Pf, 100 Mcg/0.5ml,IM 2021-01-02 00:00:00 Completed Norah Seybold Covid-19 Vaccine (Moderna), Mrna-lnp, Gume Protein, Pf, 100 Mcg/0.5ml,IM 2021-01-02 00:00:00 Completed Norah Seybold Covid-19 Vaccine Moderna (Spikevax), Mrna-lnp, Gume Protein, Pf 2021-01-02 00:00:00 Completed Norah Seybold Covid-19 Vaccine Moderna (Spikevax), Mrna-lnp, Gume Protein, Pf 2021-01-02 00:00:00 Completed Norah Seybold - External Covid-19 Vaccine Moderna (Spikevax), Mrna-lnp, Gume Protein, Pf 2021-01-02 00:00:00 Completed Norah Seybold - External Covid-19 Vaccine Moderna (Spikevax), Mrna-lnp, Gume Protein, Pf 2021-01-02 00:00:00 Completed Norah Seybold - External Covid-19 Vaccine Moderna (Spikevax), Mrna-lnp, Gume Protein, Pf 2021-01-02 00:00:00 Completed Norah Seybold - External Covid-19 Vaccine Moderna (Spikevax), Mrna-lnp, Gume Protein, Pf 2021-01-02 00:00:00 Completed Norah Seybold - External Covid-19 Vaccine Moderna (Spikevax), Mrna-lnp, Gume Protein, Pf 2021-01-02 00:00:00 Completed Norah Seybold - External Covid-19 Vaccine Moderna (Spikevax), Mrna-lnp, Gume Protein, Pf 2021-01-02 00:00:00 Completed Norah Seybold - External Covid-19 Vaccine Moderna (Spikevax), Mrna-lnp, Gume Protein, Pf 2021-01-02 00:00:00 Completed Norah Seybold - External Covid-19 Vaccine Moderna (Spikevax), Mrna-lnp, Gume Protein, Pf 2021-01-02 00:00:00 Completed Norah Seybold - External Covid-19 Vaccine (Moderna), Mrna-lnp, Gume Protein, Pf, 100 Mcg/0.5ml,IM 2021-01-02 00:00:00 Completed Norah Seybold Covid-19 Vaccine Moderna (Spikevax), Mrna-lnp, Gume Protein, Pf 2021-01-02 00:00:00 Completed Norah Seybold - External Covid-19 Vaccine Moderna (Spikevax), Mrna-lnp, Gume Protein, Pf 2021-01-02 00:00:00 Completed Norah Seybold - External Covid-19 Vaccine Moderna (Spikevax), Mrna-lnp, Gume Protein, Pf 2021-01-02 00:00:00 Completed Norah Seybold - External Covid-19 Vaccine Moderna (Spikevax), Mrna-lnp, Gume Protein, Pf 2021-01-02 00:00:00 Completed Norah Seybold - External Covid-19 Vaccine Moderna (Spikevax), Mrna-lnp, Gume Protein, Pf 2021-01-02 00:00:00 Completed Norah Seybold - External Covid-19 Vaccine Moderna (Spikevax), Mrna-lnp, Gume Protein, Pf 2021-01-02 00:00:00 Completed Norah Seybold - External Covid-19 Vaccine Moderna (Spikevax), Mrna-lnp, Gume Protein, Pf 2021-01-02 00:00:00 Completed Norah Seybold - External Covid-19 Vaccine Moderna (Spikevax), Mrna-lnp, Gume Protein, Pf 2020-12-05 00:00:00 Completed Norah Seybold - External Covid-19 Vaccine Moderna (Spikevax), Mrna-lnp, Gume Protein, Pf 2020-12-05 00:00:00 Completed Norah Seybold - External Covid-19 Vaccine (Moderna), Mrna-lnp, Gume Protein, Pf, 100 Mcg/0.5ml,IM 2020-12-05 00:00:00 Completed Norah Seybold Covid-19 Vaccine (Moderna), Mrna-lnp, Gume Protein, Pf, 100 Mcg/0.5ml,IM 2020-12-05 00:00:00 Completed Norah Seybold Covid-19 Vaccine Moderna (Spikevax), Mrna-lnp, Gume Protein, Pf 2020-12-05 00:00:00 Completed Norah Markhamold Covid-19 Vaccine Moderna (Spikevax), Mrna-lnp, Gume Protein, Pf 2020-12-05 00:00:00 Completed Norah Seybold - External Covid-19 Vaccine Moderna (Spikevax), Mrna-lnp, Gume Protein, Pf 2020-12-05 00:00:00 Completed Norah Seybold - External Covid-19 Vaccine Moderna (Spikevax), Mrna-lnp, Gume Protein, Pf 2020-12-05 00:00:00 Completed Norah Seybold - External Covid-19 Vaccine Moderna (Spikevax), Mrna-lnp, Gume Protein, Pf 2020-12-05 00:00:00 Completed Norah Seybold - External Covid-19 Vaccine Moderna (Spikevax), Mrna-lnp, Gume Protein, Pf 2020-12-05 00:00:00 Completed Norah Seybold - External Covid-19 Vaccine Moderna (Spikevax), Mrna-lnp, Gume Protein, Pf 2020-12-05 00:00:00 Completed Norah ybold - External Covid-19 Vaccine Moderna (Spikevax), Mrna-lnp, Gume Protein, Pf 2020-12-05 00:00:00 Completed Norah Seybold - External Covid-19 Vaccine Moderna (Spikevax), Mrna-lnp, Gume Protein, Pf 2020-12-05 00:00:00 Completed Norah Seybold - External Covid-19 Vaccine Moderna (Spikevax), Mrna-lnp, Gume Protein, Pf 2020-12-05 00:00:00 Completed Norah Seybold - External Covid-19 Vaccine (Moderna), Mrna-lnp, Gume Protein, Pf, 100 Mcg/0.5ml,IM 2020-12-05 00:00:00 Completed Norah Seybold Covid-19 Vaccine Moderna (Spikevax), Mrna-lnp, Gume Protein, Pf 2020-12-05 00:00:00 Completed Norah Seybold - External Covid-19 Vaccine Moderna (Spikevax), Mrna-lnp, Gume Protein, Pf 2020-12-05 00:00:00 Completed Norah Seybold - External Covid-19 Vaccine Moderna (Spikevax), Mrna-lnp, Gume Protein, Pf 2020-12-05 00:00:00 Completed Norah Seybold - External Covid-19 Vaccine Moderna (Spikevax), Mrna-lnp, Gmue Protein, Pf 2020-12-05 00:00:00 Completed Norah Seybold - External Covid-19 Vaccine Moderna (Spikevax), Mrna-lnp, Gume Protein, Pf 2020-12-05 00:00:00 Completed Norah Seybold - External Covid-19 Vaccine Moderna (Spikevax), Mrna-lnp, Gume Protein, Pf 2020-12-05 00:00:00 Completed Norah Seybold - External Covid-19 Vaccine Moderna (Spikevax), Mrna-lnp, Gume Protein, Pf 2020-12-05 00:00:00 Completed Norah Seybold - External Shingles IM (Shingrix) 2020-06-09 00:00:00 Completed Norah Seybold - External Shingles IM (Shingrix) 2020-06-09 00:00:00 Completed Norah Seybold - External Shingles IM (Shingrix) 2020-06-09 00:00:00 Completed Norah Seybold - External Shingles IM (Shingrix) 2020-06-09 00:00:00 Completed Norah Seybold - External Pneumococcal Vaccine, Conjugate 2019-10-22 00:00:00 Completed Norah Seybold - External Pneumococcal Vaccine, Conjugate 2019-10-22 00:00:00 Completed Norah Seybold - External Pneumococcal Vaccine, Conjugate 2019-10-22 00:00:00 Completed Norah Seybold Pneumococcal Vaccine, Conjugate 2019-10-22 00:00:00 Completed Norah Seybold Pneumococcal Vaccine, Conjugate 2019-10-22 00:00:00 Completed Norah Seybold Pneumococcal Vaccine, Conjugate 2019-10-22 00:00:00 Completed Norah Seybold - External Pneumococcal Vaccine, Conjugate 2019-10-22 00:00:00 Completed Norah Seybold - External Pneumococcal Vaccine, Conjugate 13 2019-10-22 00:00:00 Completed Norah Seybold - External Pneumococcal Vaccine, Conjugate 13 2019-10-22 00:00:00 Completed Norah Seybold - External Pneumococcal Vaccine, Conjugate 13 2019-10-22 00:00:00 Completed Norah Seybold - External Pneumococcal Vaccine, Conjugate 13 2019-10-22 00:00:00 Completed Norah Seybold - External Pneumococcal Vaccine, Conjugate 13 2019-10-22 00:00:00 Completed Norah Seybold - External Pneumococcal Vaccine, Conjugate 13 2019-10-22 00:00:00 Completed Norah Seybold - External Pneumococcal Vaccine, Conjugate 13 2019-10-22 00:00:00 Completed Norah Seybold - External Pneumococcal Vaccine, Conjugate 13 2019-10-22 00:00:00 Completed Norah Seybold Pneumococcal Vaccine, Conjugate 13 2019-10-22 00:00:00 Completed Norah Seybold - External Pneumococcal Vaccine, Conjugate 13 2019-10-22 00:00:00 Completed Norah Seybold - External Pneumococcal Vaccine, Conjugate 13 2019-10-22 00:00:00 Completed Norah Seybold - External Pneumococcal Vaccine, Conjugate 13 2019-10-22 00:00:00 Completed Norah Seybold - External Pneumococcal Vaccine, Conjugate 13 2019-10-22 00:00:00 Completed Norah Seybold - External Pneumococcal Vaccine, Conjugate 13 2019-10-22 00:00:00 Completed Norah Seybold - External Pneumococcal Vaccine, Conjugate 13 2019-10-22 00:00:00 Completed Norah Seybold - External Influenza Virus Vaccine, High Dose, Age 65 And Up 2019-08-23 00:00:00 Completed Norah Seybold - External Shingles IM (Shingrix) 2019-08-23 00:00:00 Completed Norah Seybold - External Influenza Virus Vaccine, High Dose, Age 65 And Up 2019-08-23 00:00:00 Completed Norah Seybold - External Shingles IM (Shingrix) 2019-08-23 00:00:00 Completed Norah Seybold - External Influenza Virus Vaccine, High Dose, Age 65 And Up 2019-08-23 00:00:00 Completed Norah Seybold Shingles IM (Shingrix) 2019-08-23 00:00:00 Completed Norah Seybold Influenza Virus Vaccine, High Dose, Age 65 And Up 2019-08-23 00:00:00 Completed Norah Seybold Shingles IM (Shingrix) 2019-08-23 00:00:00 Completed Norah Seybold Influenza Virus Vaccine, High Dose, Age 65 And Up 2019-08-23 00:00:00 Completed Norah Seybold Shingles IM (Shingrix) 2019-08-23 00:00:00 Completed Norah Seybold Influenza Virus Vaccine, High Dose, Age 65 And Up 2019-08-23 00:00:00 Completed Norah Seybold - External Shingles IM (Shingrix) 2019-08-23 00:00:00 Completed Norah Seybold - External Influenza Virus Vaccine, High Dose, Age 65 And Up 2019-08-23 00:00:00 Completed Norah Seybold - External Shingles IM (Shingrix) 2019-08-23 00:00:00 Completed Norah Seybold - External Influenza Virus Vaccine, High Dose, Age 65 And Up 2019-08-23 00:00:00 Completed Norah Seybold - External Shingles IM (Shingrix) 2019-08-23 00:00:00 Completed Norah Seybold - External Influenza Virus Vaccine, High Dose, Age 65 And Up 2019-08-23 00:00:00 Completed Norah Seybold - External Shingles IM (Shingrix) 2019-08-23 00:00:00 Completed Norah Seybold - External Influenza Virus Vaccine, High Dose, Age 65 And Up 2019-08-23 00:00:00 Completed Norah Seybold - External Shingles IM (Shingrix) 2019-08-23 00:00:00 Completed Norah Seybold - External Influenza Virus Vaccine, High Dose, Age 65 And Up 2019-08-23 00:00:00 Completed Norah Seybold - External Shingles IM (Shingrix) 2019-08-23 00:00:00 Completed Norah Seybold - External Influenza Virus Vaccine, High Dose, Age 65 And Up 2019-08-23 00:00:00 Completed Norah Seybold - External Shingles IM (Shingrix) 2019-08-23 00:00:00 Completed Norah Seybold - External Influenza Virus Vaccine, High Dose, Age 65 And Up 2019-08-23 00:00:00 Completed Norah Seybold - External Shingles IM (Shingrix) 2019-08-23 00:00:00 Completed Norah Seybold - External Influenza Virus Vaccine, High Dose, Age 65 And Up 2019-08-23 00:00:00 Completed Norah Seybold - External Shingles IM (Shingrix) 2019-08-23 00:00:00 Completed Norah Seybold - External Influenza Virus Vaccine, High Dose, Age 65 And Up 2019-08-23 00:00:00 Completed Norah Seybold Influenza Virus Vaccine, High Dose, Age 65 And Up 2019-08-23 00:00:00 Completed Norah Seybold - External Shingles IM (Shingrix) 2019-08-23 00:00:00 Completed Norah Seybold - External Shingles IM (Shingrix) 2019-08-23 00:00:00 Completed Norah Seybold Influenza Virus Vaccine, High Dose, Age 65 And Up 2019-08-23 00:00:00 Completed Norah Seybold - External Shingles IM (Shingrix) 2019-08-23 00:00:00 Completed Norah Seybold - External Influenza Virus Vaccine, High Dose, Age 65 And Up 2019-08-23 00:00:00 Completed Norah Seybold - External Shingles IM (Shingrix) 2019-08-23 00:00:00 Completed Norah Seybold - External Influenza Virus Vaccine, High Dose, Age 65 And Up 2019-08-23 00:00:00 Completed Norah Seybold - External Shingles IM (Shingrix) 2019-08-23 00:00:00 Completed Norah Seybold - External Influenza Virus Vaccine, High Dose, Age 65 And Up 2019-08-23 00:00:00 Completed Norah Seybold - External Shingles IM (Shingrix) 2019-08-23 00:00:00 Completed Norah Seybold - External Influenza Virus Vaccine, High Dose, Age 65 And Up 2019-08-23 00:00:00 Completed Norah Seybold - External Shingles IM (Shingrix) 2019-08-23 00:00:00 Completed Norah Seybold - External Influenza Virus Vaccine, High Dose, Age 65 And Up 2019-08-23 00:00:00 Completed Norah Seybold - External Shingles IM (Shingrix) 2019-08-23 00:00:00 Completed Norah Seybold - External Pneumococcal Vaccine, Conjugate 13 2017-10-10 00:00:00 Completed Norah Seybold - External Tdap- (Boostrix, Adacel) 2017-10-10 00:00:00 Completed Norah Seybold - External Pneumococcal Vaccine, Conjugate 13 2017-10-10 00:00:00 Completed Norah Seybold - External Tdap- (Boostrix, Adacel) 2017-10-10 00:00:00 Completed Norah Seybold - External Pneumococcal Vaccine, Conjugate 13 2017-10-10 00:00:00 Completed Norah Seybold Tdap- (Boostrix, Adacel) 2017-10-10 00:00:00 Completed Norah Seybold Pneumococcal Vaccine, Conjugate 13 2017-10-10 00:00:00 Completed Norah Seybold Tdap- (Boostrix, Adacel) 2017-10-10 00:00:00 Completed Norah Seybold Pneumococcal Vaccine, Conjugate 13 2017-10-10 00:00:00 Completed Norah Seybold Tdap- (Boostrix, Adacel) 2017-10-10 00:00:00 Completed Norah Seybold Pneumococcal Vaccine, Conjugate 13 2017-10-10 00:00:00 Completed Norah Seybold - External Tdap- (Boostrix, Adacel) 2017-10-10 00:00:00 Completed Norah Seybold - External Pneumococcal Vaccine, Conjugate 13 2017-10-10 00:00:00 Completed Norah Seybold - External Tdap- (Boostrix, Adacel) 2017-10-10 00:00:00 Completed Norah Seybold - External Pneumococcal Vaccine, Conjugate 13 2017-10-10 00:00:00 Completed Norah Seybold - External Tdap- (Boostrix, Adacel) 2017-10-10 00:00:00 Completed Norah Seybold - External Pneumococcal Vaccine, Conjugate 13 2017-10-10 00:00:00 Completed Norah Seybold - External Tdap- (Boostrix, Adacel) 2017-10-10 00:00:00 Completed Norah Seybold - External Pneumococcal Vaccine, Conjugate 13 2017-10-10 00:00:00 Completed Norah Seybold - External Tdap- (Boostrix, Adacel) 2017-10-10 00:00:00 Completed Norah Seybold - External Pneumococcal Vaccine, Conjugate 13 2017-10-10 00:00:00 Completed Norah Seybold - External Tdap- (Boostrix, Adacel) 2017-10-10 00:00:00 Completed Norah Seybold - External Pneumococcal Vaccine, Conjugate 13 2017-10-10 00:00:00 Completed Norah Seybold - External Tdap- (Boostrix, Adacel) 2017-10-10 00:00:00 Completed Norah Seybold - External Pneumococcal Vaccine, Conjugate 13 2017-10-10 00:00:00 Completed Norah Seybold - External Tdap- (Boostrix, Adacel) 2017-10-10 00:00:00 Completed Norah Seybold - External Pneumococcal Vaccine, Conjugate 13 2017-10-10 00:00:00 Completed Norah Seybold - External Tdap- (Boostrix, Adacel) 2017-10-10 00:00:00 Completed Norah Seybold - External Pneumococcal Vaccine, Conjugate 13 2017-10-10 00:00:00 Completed Norah Seybold - External Tdap- (Boostrix, Adacel) 2017-10-10 00:00:00 Completed Norah Seybold - External Pneumococcal Vaccine, Conjugate 13 2017-10-10 00:00:00 Completed Norah Seybold Tdap- (Boostrix, Adacel) 2017-10-10 00:00:00 Completed Norah Seybold Pneumococcal Vaccine, Conjugate 13 2017-10-10 00:00:00 Completed Norah Seybold - External Tdap- (Boostrix, Adacel) 2017-10-10 00:00:00 Completed Norah Seybold - External Pneumococcal Vaccine, Conjugate 13 2017-10-10 00:00:00 Completed Norah Seybold - External Tdap- (Boostrix, Adacel) 2017-10-10 00:00:00 Completed Norah Seybold - External Pneumococcal Vaccine, Conjugate 13 2017-10-10 00:00:00 Completed Norah Seybold - External Tdap- (Boostrix, Adacel) 2017-10-10 00:00:00 Completed Norah Seybold - External Pneumococcal Vaccine, Conjugate 13 2017-10-10 00:00:00 Completed Norah Seybold - External Tdap- (Boostrix, Adacel) 2017-10-10 00:00:00 Completed Norah Seybold - External Pneumococcal Vaccine, Conjugate 13 2017-10-10 00:00:00 Completed Norah Seybold - External Tdap- (Boostrix, Adacel) 2017-10-10 00:00:00 Completed Norah Seybold - External Pneumococcal Vaccine, Conjugate 13 2017-10-10 00:00:00 Completed Norah Seybold - External Tdap- (Boostrix, Adacel) 2017-10-10 00:00:00 Completed Norah Seybold - External Pneumococcal Vaccine, Polysaccharide 2016-04-12 00:00:00 Completed Norah Seybold - External Pneumococcal Vaccine, Polysaccharide 2016-04-12 00:00:00 Completed Norah Seybold - External Pneumococcal Vaccine, Polysaccharide 2016-04-12 00:00:00 Completed Norah Seybold Pneumococcal Vaccine, Polysaccharide 2016-04-12 00:00:00 Completed Norah Seybold Pneumococcal Vaccine, Polysaccharide 2016-04-12 00:00:00 Completed Norah Seybold Pneumococcal Vaccine, Polysaccharide 2016-04-12 00:00:00 Completed Norah Seybold - External Pneumococcal Vaccine, Polysaccharide 2016-04-12 00:00:00 Completed Norah Seybold - External Pneumococcal Vaccine, Polysaccharide 2016-04-12 00:00:00 Completed Norah Seybold - External Pneumococcal Vaccine, Polysaccharide 2016-04-12 00:00:00 Completed Norah Seybold - External Pneumococcal Vaccine, Polysaccharide 2016-04-12 00:00:00 Completed Norah Seybold - External Pneumococcal Vaccine, Polysaccharide 2016-04-12 00:00:00 Completed Norah Seybold - External Pneumococcal Vaccine, Polysaccharide 2016-04-12 00:00:00 Completed Norah Seybold - External Pneumococcal Vaccine, Polysaccharide 2016-04-12 00:00:00 Completed Norah Seybold - External Pneumococcal Vaccine, Polysaccharide 2016-04-12 00:00:00 Completed Norah Seybold - External Pneumococcal Vaccine, Polysaccharide 2016-04-12 00:00:00 Completed Norah Seybold - External Pneumococcal Vaccine, Polysaccharide 2016-04-12 00:00:00 Completed Norah Seybold Pneumococcal Vaccine, Polysaccharide 2016-04-12 00:00:00 Completed Norah Seybold - External Pneumococcal Vaccine, Polysaccharide 2016-04-12 00:00:00 Completed Norah Seybold - External Pneumococcal Vaccine, Polysaccharide 2016-04-12 00:00:00 Completed Norah Seybold - External Pneumococcal Vaccine, Polysaccharide 2016-04-12 00:00:00 Completed Norah Seybold - External Pneumococcal Vaccine, Polysaccharide 2016-04-12 00:00:00 Completed Norah Seybold - External Pneumococcal Vaccine, Polysaccharide 2016-04-12 00:00:00 Completed Norah Seybold - External Covid-19 Vaccine Moderna (Spikevax), Mrna-lnp, Gume Protein, Pf Unknown Completed Norah Seybold - External Influenza Virus Vaccine, High Dose, Age 65 And Up Unknown Completed Norah Seybold - [facility] Pneum[facility]ine, Con[facility]ate 13 [facility], [facility]- (Boostrix, Adacel) Unknown Com[facility], Quadrivalent, High Dose, Age 65 And Up Unknown Completed [facility] eybold - External Covid-19 Vaccine (Pfizer), Mrna-lnp, Gume Protein, Pf, 30mcg/0.3ml,IM Unknown [facility] VACCINE PFIZER 12+ (Reynolds cap) Unknown Completed Norah Seybold - External Covid-19 Vaccine Moderna (Spikevax), Mrna-lnp, Gume Protein, Pf Unknown Completed Norah Seybold - External Influenza Virus Vaccine, High Dose, Age 65 And Up Unknown Completed Norah Seybold - External Pneumococcal Vaccine, Conjugate 13 Unknown Completed Norah Seybold - External Pneumococcal Vaccine, Polysaccharide Unknown Completed Norah Seybol d - External Tdap- (Boostrix, Adacel) Unknown Completed Norah Seybold - External Shingles IM (Shingrix) Unknown Completed Norah Seybold - External Influenza Virus Vaccine, Quadrivalent, High Dose, Age 65 And Up Unknown Completed Norah S eybold - External Covid-19 Vaccine (SnapLogic), Mrna-lnp, Gume Protein, Pf, 30mcg/0.3ml,IM Unknown Completed Norah Seybol d - External COVID-19 VACCINE PFIZER 12+ (Reynolds cap) Unknown Completed Norah Seybold - External Covid-19 Vaccine Moderna (Spikevax), Mrna-lnp, Gume Protein, Pf Unknown Completed Norah Seybold - External Influenza Virus Vaccine, High Dose, Age 65 And Up Unknown Completed Norah Seybold - External Pneumococcal Vaccine, Conjugate 13 Unknown Completed Norah Seybold - External Pneumococcal Vaccine, Polysaccharide Unknown Completed Norah Turnerybol d - External Tdap- (Boostrix, Adacel) Unknown Completed Norah Seybold - External Shingles IM (Shingrix) Unknown Completed Norah Seybold - External Influenza Virus Vaccine, Quadrivalent, High Dose, Age 65 And Up Unknown Completed Norah S eybold - External Covid-19 Vaccine (SnapLogic), Mrna-lnp, Gume Protein, Pf, 30mcg/0.3ml,IM Unknown Completed Norah Turnerybol d - External COVID-19 VACCINE PFIZER + (Reynolds cap) Unknown Completed Norah Seybold - External Covid-19 Vaccine Moderna (Spikevax), Mrna-lnp, Gume Protein, Pf Unknown Completed Norah Turnerybold - External Influenza Virus Vaccine, High Dose, Age 65 And Up Unknown Completed Norah Seybold - External Pneumococcal Vaccine, Conjugate 13 Unknown Completed Norah Seybold - External Pneumococcal Vaccine, Polysaccharide Unknown Completed Norah Turnerybol d - External Tdap- (Boostrix, Adacel) Unknown Completed Norah Turnerybold - External Shingles IM (Shingrix) Unknown Completed Norah Seybold - External Influenza Virus Vaccine, Quadrivalent, High Dose, Age 65 And Up Unknown Completed Norah S eybold - External Covid-19 Vaccine (SnapLogic), Mrna-lnp, Gume Protein, Pf, 30mcg/0.3ml,IM Unknown Completed Norah Seybol d - External COVID-19 VACCINE PFIZER + (Reynolds cap) Unknown Completed Norah Seybold - External Influenza vaccine, quadrivalent, adjuvanted, 65+ Unknown Completed Norah Markhamo ld - External COVID-19 Vaccine(SnapLogic)(fall 2022)(12yrs+) Unknown Completed Norah Seybold - External Covid-19 Vaccine Moderna (Spikevax), Mrna-lnp, Gume Protein, Pf Unknown Completed Norah Seybold - External Influenza Virus Vaccine, High Dose, Age 65 And Up Unknown Completed Norah Seybold - External Pneumococcal Vaccine, Conjugate 13 Unknown Completed Norah Seybold - External Pneumococcal Vaccine, Polysaccharide Unknown Completed Norah Turnerybol d - External Tdap- (Boostrix, Adacel) Unknown Completed Norah Seybold - External Shingles IM (Shingrix) Unknown Completed Norah Seybold - External Influenza Virus Vaccine, Quadrivalent, High Dose, Age 65 And Up Unknown Completed Norah S eybold - External Covid-19 Vaccine (SnapLogic), Mrna-lnp, Gume Protein, Pf, 30mcg/0.3ml,IM Unknown Completed Norah Turnerybol d - External COVID-19 VACCINE PFIZER 12+ (Reynolds cap) Unknown Completed Norah Seybold - External Influenza vaccine, quadrivalent, adjuvanted, 65+ Unknown Completed Norah Turnerybo ld - External COVID-19 Vaccine(SnapLogic)(fall 2022)(12yrs+) Unknown Completed Norah Seybold - External Covid-19 Vaccine Moderna (Spikevax), Mrna-lnp, Gume Protein, Pf Unknown Completed Norah Turnerybold - External Influenza Virus Vaccine, High Dose, Age 65 And Up Unknown Completed Norah Seybold - External Pneumococcal Vaccine, Conjugate 13 Unknown Completed Norah Turnerybold - External Pneumococcal Vaccine, Polysaccharide Unknown Completed Norah Markhamol d - External Tdap- (Boostrix, Adacel) Unknown Completed Norah Turnerybold - External Shingles IM (Shingrix) Unknown Completed Norah Seybold - External Influenza Virus Vaccine, Quadrivalent, High Dose, Age 65 And Up Unknown Completed Norah S eybold - External Covid-19 Vaccine (SnapLogic), Mrna-lnp, Gume Protein, Pf, 30mcg/0.3ml,IM Unknown Completed Norah Seybol d - External COVID-19 VACCINE PFIZER 12+ (Reynolds cap) Unknown Completed Norah Seybold - External Influenza vaccine, quadrivalent, adjuvanted, 65+ Unknown Completed Norah Turnerybo ld - External COVID-19 Vaccine(SnapLogic)(fall 2022)(12yrs+) Unknown Completed Norah Seybold - External Covid-19 Vaccine Moderna (Spikevax), Mrna-lnp, Gume Protein, Pf Unknown Completed Norah Seybold - External Influenza Virus Vaccine, High Dose, Age 65 And Up Unknown Completed Norah Seybold - External Pneumococcal Vaccine, Conjugate 13 Unknown Completed Norah Seybold - External Pneumococcal Vaccine, Polysaccharide Unknown Completed Norah Seybol d - External Tdap- (Boostrix, Adacel) Unknown Completed Norah Seybold - External Shingles IM (Shingrix) Unknown Completed Norah Seybold - External Influenza Virus Vaccine, Quadrivalent, High Dose, Age 65 And Up Unknown Completed Norah S eybold - External Covid-19 Vaccine (SnapLogic), Mrna-lnp, Gume Protein, Pf, 30mcg/0.3ml,IM Unknown Completed Norah Seybol d - External COVID-19 VACCINE PFIZER 12+ (Reynolds cap) Unknown Completed Norah Seybold - External Influenza vaccine, quadrivalent, adjuvanted, 65+ Unknown Completed Norah Turnerybo ld - External COVID-19 Vaccine(SnapLogic)(fall 2022)(12yrs+) Unknown Completed Norah Seybold - External Covid-19 Vaccine Moderna (Spikevax), Mrna-lnp, Gume Protein, Pf Unknown Completed Norah Seybold - External Influenza Virus Vaccine, High Dose, Age 65 And Up Unknown Completed Norah Seybold - External Pneumococcal Vaccine, Conjugate 13 Unknown Completed Norah Seybold - External Pneumococcal Vaccine, Polysaccharide Unknown Completed Norah Turnerybol d - External Tdap- (Boostrix, Adacel) Unknown Completed Norah Seybold - External Shingles IM (Shingrix) Unknown Completed Norah Seybold - External Influenza Virus Vaccine, Quadrivalent, High Dose, Age 65 And Up Unknown Completed Norah S eybold - External Covid-19 Vaccine (Pfizer), Mrna-lnp, Gume Protein, Pf, 30mcg/0.3ml,IM Unknown Completed Norah Seybol d - External COVID-19 VACCINE PFIZER 12+ (Reynolds cap) Unknown Completed Norah Seybold - External Influenza Virus Vaccine, Quadrivalent, High Dose, Age 65 And Up Unknown Completed Norah S eybold - External Influenza vaccine, quadrivalent, adjuvanted, 65+ Unknown Completed Norah Seybo ld - External COVID-19 Vaccine(SnapLogic)(fall 2022)(12yrs+) Unknown Completed Norah Seybold - External Covid-19 Vaccine Moderna (Spikevax), Mrna-lnp, Gume Protein, Pf Unknown Completed Norah Seybold - External Influenza Virus Vaccine, High Dose, Age 65 And Up Unknown Completed Norah Seybold - External Pneumococcal Vaccine, Conjugate 13 Unknown Completed Norah Seybold - External Pneumococcal Vaccine, Polysaccharide Unknown Completed Norah Seybol d - External Tdap- (Boostrix, Adacel) Unknown Completed Norah Seybold - External Shingles IM (Shingrix) Unknown Completed Norah Seybold - External Influenza Virus Vaccine, Quadrivalent, High Dose, Age 65 And Up Unknown Completed Norah S eybold - External Covid-19 Vaccine (Pfizer), Mrna-lnp, Gume Protein, Pf, 30mcg/0.3ml,IM Unknown Completed Norah Seybol d - External COVID-19 VACCINE PFIZER 12+ (Reynolds cap) Unknown Completed Norah Seybold - External Influenza Virus Vaccine, Quadrivalent, High Dose, Age 65 And Up Unknown Completed Norah S eybold - External Influenza vaccine, quadrivalent, adjuvanted, 65+ Unknown Completed Norah Turnerybo ld - External COVID-19 Vaccine(SnapLogic)(fall 2022)(12yrs+) Unknown Completed Norah Seybold - External Covid-19 Vaccine Moderna (Spikevax), Mrna-lnp, Gume Protein, Pf Unknown Completed Norah Seybold - External Influenza Virus Vaccine, High Dose, Age 65 And Up Unknown Completed Norah Seybold - External Pneumococcal Vaccine, Conjugate 13 Unknown Completed Norah Seybold - External Pneumococcal Vaccine, Polysaccharide Unknown Completed Norah Seybol d - External Tdap- (Boostrix, Adacel) Unknown Completed Norah Seybold - External Shingles IM (Shingrix) Unknown Completed Norah Seybold - External Influenza Virus Vaccine, Quadrivalent, High Dose, Age 65 And Up Unknown Completed Norah S eybold - External Covid-19 Vaccine (Pfizer), Mrna-lnp, Gume Protein, Pf, 30mcg/0.3ml,IM Unknown Completed Norah Seybol d - External COVID-19 VACCINE PFIZER 12+ (Reynolds cap) Unknown Completed Norah Turnerybold - External Influenza Virus Vaccine, Quadrivalent, High Dose, Age 65 And Up Unknown Completed Norah Mccann eybold - External Influenza vaccine, quadrivalent, adjuvanted, 65+ Unknown Completed Norah TurnerCompiereo ld - External COVID-19 Vaccine(SnapLogic)(12yrs +) Unknown Completed Norah Turnerybold - External Covid-19 Vaccine Moderna (Spikevax), Mrna-lnp, Gume Protein, Pf Unknown Completed Norah Turnerybold - External Influenza Virus Vaccine, High Dose, Age 65 And Up Unknown Completed Norah Turnerybold - External Pneumococcal Vaccine, Conjugate 13 Unknown Completed Norah Turnerybold - External Pneumococcal Vaccine, Polysaccharide Unknown Completed Norah TurnerThirdPresence d - External Tdap- (Boostrix, Adacel) Unknown Completed Norah TurnerCompierenimisha - External Shingles IM (Shingrix) Unknown Completed Norah TurnerCompiereold - External Influenza Virus Vaccine, Quadrivalent, High Dose, Age 65 And Up Unknown Completed Norah Mccann eybold - External Covid-19 Vaccine (SnapLogic), Mrna-lnp, Gume Protein, Pf, 30mcg/0.3ml,IM Unknown Completed Norah TurnerCompiereol d - External COVID-19 VACCINE PFIZER 12+ (Reynolds cap) Unknown Completed Norah TurnerCompiereold - External Influenza Virus Vaccine, Quadrivalent, High Dose, Age 65 And Up Unknown Completed Norah Mccann Solar Notionbold - External Influenza vaccine, quadrivalent, adjuvanted, 65+ Unknown Completed Norah TurnerCompiereo ld - External COVID-19 Vaccine(SnapLogic)(12yrs +) Unknown Completed Norah TurnerCompierenimisha - External FLUAD TRIVALENT PF Influenza Vaccine, Adjuvanted, Preserve Unknown Completed Norah Turnerybnimisha - External Vital Signs Vital Name Observation Time Observation Value Comments S ourmely Systolic blood pressure 2024-08-31 20:46:00 134 mm[Hg] Norah Rico ld - External Diastolic blood pressure 2024-08-31 20:46:00 85 mm[Hg] Norah Rico ld - External Heart rate 2024-08-31 20:46:00 57 /min Wilbert Gonzales - External Body temperature 2024-08-31 20:46:00 36.5 Kelly Norah ybnimisha - External Respiratory rate 2024-08-31 20:46:00 20 /min Norah Seybold - External Body height 2024-08-31 20:46:00 182.9 cm Marimar ey Seybold - External Body weight 2024-08-31 20:46:00 138.801 kg Marimar ey Seybold - External BMI 2024-08-31 20:46:00 41.50 kg/m2 Marimar ey Seybold - External Oxygen saturation in Arterial blood by Pulse oximetry 2024-08-31 20:46:00 95 /min Norah Seybo ld - External Systolic blood pressure 2024-07-12 19:47:00 138 mm[Hg] Norah Seybo ld - External Diastolic blood pressure 2024-07-12 19:47:00 72 mm[Hg] Norah Seybo ld - External Heart rate 2024-07-12 19:47:00 99 /min Kelse y Seybold - External Body temperature 2024-07-12 19:47:00 36.44 Kelly Norah Seybold - External Respiratory rate 2024-07-12 19:47:00 20 /min Norah Seybold - External Body height 2024-07-12 19:47:00 182.9 cm Marimar ey Seybold - External Body weight 2024-07-12 19:47:00 136.351 kg Marimar ey Seybold - External BMI 2024-07-12 19:47:00 40.77 kg/m2 Marimar ey Seybold - External Oxygen saturation in Arterial blood by Pulse oximetry 2024-07-12 19:47:00 98 /min Norah Seybo ld - External Systolic blood pressure 2024-05-01 20:35:00 134 mm[Hg] Norah Seybo ld - External Diastolic blood pressure 2024-05-01 20:35:00 82 mm[Hg] Norah Seybo ld - External Heart rate 2024-05-01 20:35:00 74 /min Kelse y Seybold - External Body temperature 2024-05-01 20:35:00 36.33 Kelly Norah Seybold - External Respiratory rate 2024-05-01 20:35:00 16 /min Norah Seybold - External Body height 2024-05-01 20:35:00 182.9 cm Marimar ey Seybold - External Body weight 2024-05-01 20:35:00 134.718 kg Marimar ey Seybold - External BMI 2024-05-01 20:35:00 40.28 kg/m2 Marimar ey Seybold - External Oxygen saturation in Arterial blood by Pulse oximetry 2024-05-01 20:35:00 97 /min Norah Seybo ld - External Systolic blood pressure 2024-01-30 21:10:00 135 mm[Hg] Norah Seybo ld - External Diastolic blood pressure 2024-01-30 21:10:00 78 mm[Hg] Norah Seybo ld - External Heart rate 2024-01-30 21:10:00 61 /min Kelse y Seybold - External Body temperature 2024-01-30 21:10:00 36.5 Kelly Norah Seybold - External Respiratory rate 2024-01-30 21:10:00 22 /min Norah Seybold - External Body height 2024-01-30 21:10:00 182.9 cm Marimar ey Seybold - External Body weight 2024-01-30 21:10:00 138.347 kg Marimar ey Seybold - External BMI 2024-01-30 21:10:00 41.37 kg/m2 Marimar ey Seybold - External Oxygen saturation in Arterial blood by Pulse oximetry 2024-01-30 21:10:00 96 /min Norah Seybo ld - External Systolic blood pressure 2023-12-19 21:33:00 130 mm[Hg] Norah Seybo ld - External Diastolic blood pressure 2023-12-19 21:33:00 64 mm[Hg] Norah Seybo ld - External Heart rate 2023-12-19 21:33:00 76 /min Kelse y Seybold - External Body temperature 2023-12-19 21:33:00 36.5 Kelly Norah Seybold - External Respiratory rate 2023-12-19 21:33:00 22 /min Norah Seybold - External Body height 2023-12-19 21:33:00 182.9 cm Marimar ey Seybold - External Body weight 2023-12-19 21:33:00 137.893 kg Marimar ey Seybold - External BMI 2023-12-19 21:33:00 41.23 kg/m2 Marimar ey Seybold - External Oxygen saturation in Arterial blood by Pulse oximetry 2023-12-19 21:33:00 94 /min Norah Seybo ld - External Systolic blood pressure 2023-10-10 21:00:00 144 mm[Hg] Norah Seybo ld - External Diastolic blood pressure 2023-10-10 21:00:00 62 mm[Hg] Norah Seybo ld - External Heart rate 2023-10-10 21:00:00 75 /min Kelse y Seybold - External Body temperature 2023-10-10 21:00:00 36.33 Kelly Norah Seybold - External Respiratory rate 2023-10-10 21:00:00 15 /min Norah Seybold - External Body height 2023-10-10 21:00:00 182.9 cm Marimar ey Seybold - External Body weight 2023-10-10 21:00:00 137.893 kg Marimar ey Seybold - External BMI 2023-10-10 21:00:00 41.23 kg/m2 Marimar ey Seybold - External Systolic blood pressure 2023-06-17 20:03:00 142 mm[Hg] Norah Seybo ld - External Diastolic blood pressure 2023-06-17 20:03:00 67 mm[Hg] Norah Seybo ld - External Heart rate 2023-06-17 20:03:00 81 /min Kelse y Seybold - External Body temperature 2023-06-17 20:03:00 36.72 Kelly Norah Seybold - External Respiratory rate 2023-06-17 20:03:00 20 /min Norah Seybold - External Body height 2023-06-17 20:03:00 182.9 cm Marimar ey Seybold - External Body weight 2023-06-17 20:03:00 137.44 kg Marimar ey Seybold - External BMI 2023-06-17 20:03:00 41.09 kg/m2 Marimar ey Seybold - External Oxygen saturation in Arterial blood by Pulse oximetry 2023-06-17 20:03:00 99 /min Norah Seybo ld - External Systolic blood pressure 2023-04-18 20:07:00 138 mm[Hg] Norah Seybo ld - External Diastolic blood pressure 2023-04-18 20:07:00 82 mm[Hg] Norah Turnerybo ld - External Heart rate 2023-04-18 20:07:00 76 /min Kelse y Seybold - External Body temperature 2023-04-18 20:07:00 36.83 Kelly Norah Turnerybold - External Respiratory rate 2023-04-18 20:07:00 16 /min Norah Turnerybold - External Body height 2023-04-18 20:07:00 182.9 cm Marimar ey Seybold - External Body weight 2023-04-18 20:07:00 134.265 kg Marimar ey Seybold - External BMI 2023-04-18 20:07:00 40.14 kg/m2 Marimar carter Seybold - External Oxygen saturation in Arterial blood by Pulse oximetry 2023-04-18 20:07:00 95 /min Norah Markhamo ld - External height 2023-03-02 14:30:00 74 [in_i] Commo n [facility] weight 2023-03-02 14:30:00 293 [lb_av] Comm on [facility] temperature 2023-03-02 14:30:00 98.2 [degF] Com mon [facility] bmi 2023-03-02 14:30:00 37.61 kg/m2 Comm on [facility] blood pressure systolic 2023-03-02 14:30:00 139 mm[Hg] Common [facility] blood pressure diastolic 2023-03-02 14:30:00 80 mm[Hg] Common [facility] Systolic blood pressure 2023-01-27 19:47:00 149 mm[Hg] Norah Turnerybo ld - External Diastolic blood pressure 2023-01-27 19:47:00 79 mm[Hg] Norah Turnerybo ld - External Heart rate 2023-01-27 19:47:00 79 /min Esause y Seybold - External Body temperature 2023-01-27 19:47:00 36.5 Kelly Norah Seybold - External Respiratory rate 2023-01-27 19:47:00 18 /min Norah Seybold - External Body height 2023-01-27 19:47:00 182.9 cm Marimar ey Seybold - External Body weight 2023-01-27 19:47:00 136.079 kg Marimar ey Seybold - External BMI 2023-01-27 19:47:00 40.69 kg/m2 Marimar ey Seybold - External Systolic blood pressure 2023-01-03 21:00:00 116 mm[Hg] Norah Seybo ld - External Diastolic blood pressure 2023-01-03 21:00:00 52 mm[Hg] Norah Turnerybo ld - External Heart rate 2023-01-03 21:00:00 81 /min Wilebrt y ybold - External Body temperature 2023-01-03 21:00:00 36.5 Kelly Norah Seybold - External Respiratory rate 2023-01-03 21:00:00 15 /min Norah Seybold - External Body height 2023-01-03 21:00:00 182.9 cm Marimar ey Seybold - External Body weight 2023-01-03 21:00:00 139.254 kg Marimar ey Seybold - External BMI 2023-01-03 21:00:00 41.64 kg/m2 Marimar ey Seybold - External height 2022-12-09 16:45:00 74 [in_i] Commo n [facility] weight 2022-12-09 16:45:00 309.6 [lb_av] Co mmon [facility] temperature 2022-12-09 16:45:00 98.5 [degF] Com mon [facility] bmi 2022-12-09 16:45:00 39.75 kg/m2 Comm on [facility] oximetry 2022-12-09 16:45:00 95 % Commo n [facility] respiratory rate 2022-12-09 16:45:00 16 /min Common [facility] blood pressure systolic 2022-12-09 16:45:00 146 mm[Hg] [facility] blood pressure diastolic 2022-12-09 16:45:00 71 mm[Hg] [facility] Systolic blood pressure 2022-12-06 22:14:00 139 mm[Hg] Norah Markhamo ld - External Diastolic blood pressure 2022-12-06 22:14:00 78 mm[Hg] Norah Markhamo ld - External Heart rate 2022-12-06 22:14:00 98 /min Kel y Seybold - External Body temperature 2022-12-06 22:14:00 36.56 Kelly Norah Seybold - External Respiratory rate 2022-12-06 22:14:00 15 /min Norah Turnerybold - External Body height 2022-12-06 22:14:00 182.9 cm Marimar carter Seybold - External Body weight 2022-12-06 22:14:00 141.069 kg Marimar ey Seybold - External BMI 2022-12-06 22:14:00 42.18 kg/m2 Marimar carter Seybold - External Oxygen saturation in Arterial blood by Pulse oximetry 2022-12-06 22:14:00 99 /min Norah Rico ld - External height 2022-09-01 13:00:00 74 [in_i] Commo n [facility] weight 2022-09-01 13:00:00 301 [lb_av] Comm on [facility] temperature 2022-09-01 13:00:00 98.6 [degF] Com mon [facility] bmi 2022-09-01 13:00:00 38.64 kg/m2 Comm on [facility] oximetry 2022-09-01 13:00:00 92 % Commo n [facility] respiratory rate 2022-09-01 13:00:00 16 /min [facility] blood pressure systolic 2022-09-01 13:00:00 144 mm[Hg] [facility] blood pressure diastolic 2022-09-01 13:00:00 69 mm[Hg] [facility] Systolic blood pressure 2021-09-07 18:59:00 120 mm[Hg] Norah Seybo ld Diastolic blood pressure 2021-09-07 18:59:00 60 mm[Hg] Norah Seybo ld Heart rate 2021-09-07 18:59:00 70 /min Kelse y Seybold Body temperature 2021-09-07 18:59:00 36.28 Kelly Norah Seybold Respiratory rate 2021-09-07 18:59:00 16 /min Norah Seybold Body height 2021-09-07 18:59:00 182.9 cm Marimar ey Seybold Body weight 2021-09-07 18:59:00 128.368 kg Marimar ey Seybold BMI 2021-09-07 18:59:00 38.38 kg/m2 Marimar ey Seybold Systolic blood pressure 2021-08-18 19:31:00 130 mm[Hg] Norah Seybo ld Diastolic blood pressure 2021-08-18 19:31:00 68 mm[Hg] Norah Seybo ld Heart rate 2021-08-18 19:31:00 79 /min Kelse y Seybold Body temperature 2021-08-18 19:31:00 36.61 Kelly Norah Seybold Respiratory rate 2021-08-18 19:31:00 14 /min Norah Seybold Body height 2021-08-18 19:31:00 182.9 cm Marimar ey Seybold Body weight 2021-08-18 19:31:00 130.182 kg Marimar ey Seybold BMI 2021-08-18 19:31:00 38.92 kg/m2 Marimar ey Seybold Procedures Procedure Date / Time Performed Performing Clinicia n Source US URINE CAPACITY MEASURE 2023-01-27 00:00:00 Jacinda Sharpe Seybold - External ECG- ADULT 2021-09-07 19:43:18 Breezy Cedeno eybold URINALYSIS NONAUTO W/O SCOPE 2021-08-18 20:10:00 Bonnie Gordon Norah Seybold Encounters Start Date/Time End Date/Time Encounter Type Admission Type Attending [facility] Care Department Encounter ID Source 2024-10-22 15:36:00 Outpatient No, PCP [facility]LS [facility] [id number] [facility] 2024-10-17 03:31:00 Outpatient No, PCP [facility] [id number] [facility] 2024-09-06 14:28:01 Outpatient NO PCP FOR NOW, NO PCP FOR NOW [facility] [id number] [facility] 2023-03-02 15:59:00 Outpatient Bonnie Gordon [facility] [id number] [facility] 2023-02-23 07:29:00 Outpatient Bonnie Gordon [facility] [id number] [facility] 2022-11-08 13:28:03 Outpatient Bonnie Gordon [facility] [id number] [facility] 2022-09-01 12:52:04 Outpatient Bonnie Gordon [facility] [id number] [facility] 2025-02-05 14:30:00 2025-02-05 14:30:00 Outpatient KASI SALAZAR [id number] [facility] 2024-11-30 15:45:00 2024-11-30 15:45:00 Outpatient MAX NICHOLS [id number] [facility] 2024-10-31 14:30:00 2024-10-31 14:30:00 Outpatient SARAH BONE [id number] [facility] 2024-10-22 00:00:00 2024-10-22 00:00:00 Outpatient MAX NICHOLS [id number] [facility] 2024-10-17 14:30:00 2024-10-17 14:30:00 Outpatient SARAH BONE [id number] [facility] 2024-10-17 00:00:00 2024-10-17 00:00:00 Outpatient RHIANNON SANTIZO [id number] [facility] 2024-10-16 06:14:00 2024-10-16 06:14:00 Outpatient Greg Alfred [facility] [id number] 54 [facility] 2024-10-09 00:00:00 2024-10-09 00:00:00 Outpatient PREZAMAX Mccann NORAH WILD [id number] [facility] 2024-10-06 00:00:00 2024-10-06 00:00:00 Outpatient PREZAREID MccannALYSHA WILD [id number] Norah Seybold 2024-09-28 14:00:00 2024-09-28 14:00:00 Outpatient SUSANNERICARDO NICELeo WILD [id number] [facility] 2024-09-17 00:00:00 2024-09-17 00:00:00 Outpatient PREZARamy MAX WILD [id number] [facility] 2024-09-14 15:30:00 2024-09-14 15:30:00 Outpatient CHITSAZZADE H, ESPERANZA NORAH WILD [id number] Norah Seybold 2024-09-14 00:00:00 2024-09-14 00:00:00 Outpatient NORAH WILD [id number] Norah Seybold 2024-09-14 00:00:00 2024-09-14 00:00:00 Outpatient PREZAS MAX WILD [id number] Norah Seybold 2024-09-13 14:35:00 2024-09-13 14:35:00 Outpatient LAB90 NORAH WILD [id number] Norah Seybold 2024-09-07 15:45:00 2024-09-07 15:45:00 Outpatient SUSANNERICARDO NICELeo WILD [id number] Norah Seybold 2024-09-07 14:30:00 2024-09-07 14:30:00 Outpatient CHITSAZZADE H, ESPERANZA NORAH WILD [id number] Norah Seybold 2024-09-06 00:00:00 2024-09-06 00:00:00 Outpatient PREZAS MAX WILD [id number] Norah Seybold 2024-09-05 00:00:00 2024-09-05 00:00:00 Outpatient PREZAS MAX WILD [id number] Norah Seybnimisha 2024-09-03 00:00:00 2024-09-03 00:00:00 Outpatient MAX NICHOLS NORAH [id number] Norah Turnerybnimisha 2024-08-31 16:30:00 2024-08-31 16:30:00 Outpatient ALYSSA WILD NORAH [id number] Norah Turnerybnimisha 2024-08-31 15:30:00 2024-08-31 15:30:00 Outpatient MAX NICHOLS NORAH [id number] Norah Seybnimisha 2024-08-31 00:00:00 2024-08-31 00:00:00 Outpatient RISHICOLTONJACINDA [id number] [facility] 2024-08-23 00:00:00 2024-08-23 00:00:00 Outpatient NORAH WILD [id number] [facility] 2024-08-23 00:00:00 2024-08-23 00:00:00 Outpatient MAX NIHCOLS NORAH WILD [id number] [facility] 2024-08-23 00:00:00 2024-08-23 00:00:00 Outpatient NORAH WILD [id number] [facility] 2024-08-09 00:00:00 2024-08-09 00:00:00 Outpatient NORAH WILD [id number] [facility] 2024-08-08 14:45:00 2024-08-08 14:45:00 Outpatient KASI SALAZAR [id number] [facility] 2024-08-04 00:00:00 2024-08-04 00:00:00 Outpatient RISHICOLTON JACINDAALL WILD [id number] Norah Seybold 2024-08-03 14:30:00 2024-08-03 14:30:00 Outpatient ESPERANZA HARPER [id number] Norah Seybold 2024-07-26 00:00:00 2024-07-26 00:00:00 Outpatient MAX NICHOLS NORAH WILD [id number] [facility] 2024-07-24 00:00:00 2024-07-24 00:00:00 Outpatient NORAH NORAH [id number] [facility] 2024-07-23 00:00:00 2024-07-23 00:00:00 Outpatient PREZASMAX NORAH [id number] Norah Seybold 2024-07-23 00:00:00 2024-07-23 00:00:00 Outpatient PREZASMAX NORAH [id number] [facility] 2024-07-17 00:00:00 2024-07-17 00:00:00 Outpatient PREZAS, MAX WILD NORAH [id number] [facility] 2024-07-12 15:30:00 2024-07-12 15:30:00 Outpatient SAM NORAH WILD [id number] [facility] 2024-07-12 14:40:00 2024-07-12 14:40:00 Out[id number] [facility] 2024-[facility]-12 00:00:00 2024-06-12 00:00:00 Outpatient PREZAS, MAX NORAH WILD [id number] [facility] 2024-06-12 00:00:00 2024-06-12 00:00:00 Outpatient NORAH WILD [id number] [facility] 2024-05-04 00:00:00 2024-05-04 00:00:00 Outpatient JACINDA SHARPE [id number] Norah Seybold 2024-05-01 15:30:00 2024-05-01 15:30:00 Outpatient PREZASMAX NORAH WILD [id number] Norah Seybold 2024-04-17 00:00:00 2024-04-17 00:00:00 Outpatient BONNIE GORDON [id number] Norah Seybold 2024-03-30 00:00:00 2024-03-30 00:00:00 Outpatient PREZASMAX NORAH WILD [id number] Norah Seybold 2024-03-30 00:00:00 2024-03-30 00:00:00 Outpatient BREEZY CEDENO NORAH [id number] Norah Seybnimisha 2024-03-28 00:00:00 2024-03-28 00:00:00 Outpatient PREZASMAX NORAH WILD [id number] Norah Turnerybnimisha 2024-03-20 00:00:00 2024-03-20 00:00:00 Outpatient BREEZY CEDENO NORAH WILD [id number] [facility] 2024-03-15 00:00:00 2024-03-15 00:00:00 Outpatient BREEZY CEDENO NORAH WILD [id number] [facility] 2024-03-14 00:00:00 2024-03-14 00:00:00 Outpatient NORAH WILD [id number] [facility] 2024-03-11 00:00:00 2024-03-11 00:00:00 Outpatient EVANBONNIE NORAH WILD [id number] [facility] 2024-03-08 00:00:00 2024-03-08 00:00:00 Outpatient PREZAMAX Mccann NORAH WILD [id number] [facility] 2024-03-07 00:00:00 2024-03-07 00:00:00 Outpatient PREZASMAX NORAH WILD [id number] [facility] 2024-03-02 14:55:00 2024-03-02 14:55:00 Outpatient LAB90 NORAH WILD [id number] [facility] 2024-02-13 00:00:00 2024-02-13 00:00:00 Outpatient PREZASMAX NROAH WILD [id number] [facility] 2024-02-11 00:00:00 2024-02-11 00:00:00 Outpatient PREZASREIDMAXALYSHA WILD [id number] [facility] 2024-02-02 15:30:00 2024-02-02 15:30:00 Outpatient ESPERANZA HARPER [id number] Norah Seybold 2024-01-30 15:00:00 2024-01-30 15:00:00 Outpatient PREZAS MAX WILD [id number] [facility] 2024-01-25 00:00:00 2024-01-25 00:00:00 Outpatient MAX NICHOLS NORAH WILD [id number] Norah Seybnimisha 2024-01-25 00:00:00 2024-01-25 00:00:00 Outpatient EVAN BONNIE NORAH WILD [id number] [facility]ah Seybnimisha 2024-01-15 00:00:00 2024-01-15 00:00:00 Outpatient EVANBONNIE NORAH WILD [id number] [facility] 2024-01-12 00:00:00 2024-01-12 00:00:00 Outpatient MAGDALENA MAX WILD [id number] [facility] 2024-01-11 05:32:00 2024-01-11 05:32:00 Outpatient Hollis Jaramillo [facility] [id number] [facility] 2024-01-10 00:00:00 2024-01-10 00:00:00 Outpatient RISHICOLTON JACINDA WILD [id number] [facility] 2024-01-02 00:00:00 2024-01-02 00:00:00 Outpatient NORAH WILD [id number] [facility] 2024-01-02 00:00:00 2024-01-02 00:00:00 Outpatient NROAH WILD [id number] [facility] 2023-12-30 00:00:00 2023-12-30 00:00:00 Outpatient MAGDALENA MAX NORAH WILD [id number] [facility] 2023-12-29 16:45:00 2023-12-29 16:45:00 Outpatient LAB90 NORAH WILD [id number] Norah Seybold 2023-12-19 16:20:00 2023-12-19 16:20:00 Outpatient LAB90 NORAH WILD [id number] Norah Seybold 2023-12-19 15:30:00 2023-12-19 15:30:00 Outpatient MAGDALENA MAX NORAH WILD [id number] [facility] 2023-12-17 00:00:00 2023-12-17 00:00:00 Outpatient MAX NICHOLSROXANA WILD [id number] [facility]ah [facility] 2023-12-15 16:10:00 2023-12-15 16:10:00 Outpatient ALYSSA NORAH WILD [id number] [facility] 2023-12-14 00:00:00 2023-12-14 00:00:00 Outpatient MAX NICHOLS NORAH [id number] [facility] 2023-12-14 00:00:00 2023-12-14 00:00:00 Outpatient MAX NICHOLS NORAH [id number] [facility] 2023-12-13 00:00:00 2023-12-13 00:00:00 Outpatient NORAH WILD [id number] Norah ybnimisha 2023-12-12 00:00:00 2023-12-12 00:00:00 Outpatient KAYCEE BREEZY WILD [id number] [facility] 2023-12-09 11:45:00 2023-12-09 11:45:00 Outpatient CHITSAZZADE H, ESPERANZA NORAH WILD [id number] Norah ybnimisha 2023-12-06 15:00:00 2023-12-06 15:00:00 Outpatient CHITSAZZADE H, ESPERANZA NORAH WILD [id number] Norah ybnimisha 2023-12-01 00:00:00 2023-12-01 00:00:00 Outpatient NORAH WILD [id number] [facility] 2023-12-01 00:00:00 2023-12-01 00:00:00 Outpatient NORAH WILD [id number] Norah Seybnimisha 2023-11-24 00:00:00 2023-11-24 00:00:00 Outpatient BONNIE GORDON [id number] Norah Seybold 2023-11-22 00:00:00 2023-11-22 00:00:00 Outpatient JACINDA SHARPE [id number] Norah Seybold 2023-11-22 00:00:00 2023-11-22 00:00:00 Outpatient FRIEND, OCTAVIANO WILD [id number] Norah Seybnimisha 2023-11-21 00:00:00 2023-11-21 00:00:00 Outpatient FRIEND, OCTAVIANO WILD [id number] Norah ybnimisha 2023-11-17 00:00:00 2023-11-17 00:00:00 Outpatient PREZASMAX NORAH WILD [id number] Norah Turnery[facility]isha 2023-10-18 00:00:00 2023-10-18 00:00:00 Outpatient FRIEND, OCTAVIANO WILD [id number] Norah Seybnimisha 2023-10-14 00:00:00 2023-10-14 00:00:00 Outpatient NORAH WILD [id number] [facility] 2023-10-13 00:00:00 2023-10-13 00:00:00 Outpatient KAYCEE BREEZY WILD [id number] [facility] 2023-10-10 15:45:00 2023-10-10 15:45:00 Outpatient LABPriyanka WILD [id number] [facility] 2023-10-10 15:00:00 2023-10-10 15:00:00 Outpatient GUYL, BREEZY WILD [id number] [facility] 2023-10-07 16:00:00 2023-10-07 16:00:00 Outpatient GUYLNANETTEY NORAH WILD [id number] [facility] 2023-10-07 00:00:00 2023-10-07 00:00:00 Outpatient PREZAS, MAX NORAH WILD [id number] [facility] 2023-10-05 00:00:00 2023-10-05 00:00:00 Outpatient JACINDA SHARPE [id number] [facility] 2023-09-30 00:00:00 2023-09-30 00:00:00 Outpatient BONNIE GORDON [id number] [facility] 2023-09-26 00:00:00 2023-09-26 00:00:00 Outpatient [facility]ANZA HARPER [id number] [facility]:00:00 2023-09-24 00:00:00 Outpatient CHITSAZZADE H, ESPERANZA NORAH WILD [id number] [facility] 2023-09-15 15:30:00 2023-09-15 15:30:00 Outpatient TIE, ARISTEO WILD [id number] [facility] 2023-09-13 00:00:00 2023-09-13 00:00:00 Outpatient PREZAS, MAX WILD [id number] [facility] 2023-09-04 00:00:00 2023-09-04 00:00:00 Outpatient TIE, ARISTEO WILD [id number] [facility] 2023-09-01 16:30:00 2023-09-01 16:30:00 Outpatient FRIEND, OCTAVIANO WILD [id number] [facility] 2023-08-31 00:00:00 2023-08-31 00:00:00 Outpatient EVANBONNIE ARNOLD [id number] [facility] 2023-08-29 16:00:00 2023-08-29 16:00:00 Outpatient CHITSAZZADE H, ESPERANZA NORAH WILD [id number] [facility] 2023-08-13 00:00:00 2023-08-13 00:00:00 Outpatient FANCOLTON, JACINDA WILD [id number] [facility] 2023-08-11 00:00:00 2023-08-11 00:00:00 Outpatient PREZAS, MAX WILD [id number] [facility] 2023-08-11 00:00:00 2023-08-11 00:00:00 Outpatient PREZAS, MAX WILD [id number] [facility] 2023-08-10 15:15:00 2023-08-10 15:15:00 Outpatient TIE, ARISTEO WILD [id number] [facility] 2023-08-10 00:00:00 2023-08-10 00:00:00 Outpatient FANCOLTON, JACINDA NORAH WILD [id number] [facility] 2023-08-10 00:00:00 2023-08-10 00:00:00 Outpatient PREZAS, MAX NORAH WILD [id number] [facility] 2023-08-09 10:00:00 2023-08-09 10:00:00 Outpatient TIE, ARISTEO WILD [id number] [facility] 2023-08-09 00:00:00 2023-08-09 00:00:00 Outpatient BRASHER, ALBERTO NORAH WILD [id number] [facility] 2023-08-09 00:00:00 2023-08-09 00:00:00 Outpatient TIE, ARISTEO WILD [id number] [facility] 2023-08-08 00:00:00 2023-08-08 00:00:00 Outpatient MD NORAH MALIK [id number] [facility] 2023-08-07 00:00:00 2023-08-07 00:00:00 Outpatient TIE, ARISTEO WILD [id number] [facility] 2023-08-05 15:45:00 2023-08-05 15:45:00 Outpatient TIE, ARISTEO WILD [id number] [facility] 2023-08-05 14:30:00 2023-08-05 14:30:00 Outpatient A-SCAN NORAH WILD [id number] [facility] 2023-08-05 14:30:00 2023-08-05 14:30:00 Outpatient TIE, ARISTEO WILD [id number] [facility] 2023-08-04 14:30:00 2023-08-04 14:30:00 Outpatient TRED53 NORAH WILD [id number] [facility] 2023-08-04 14:00:00 2023-08-04 14:00:00 Outpatient TIE, ARISTEO WILD [id number] [facility] 2023-08-04 00:00:00 2023-08-04 00:00:00 Outpatient TIE, ARISTEO IWLD [id number] [facility] 2023-07-12 15:00:00 2023-07-12 15:00:00 Outpatient LABPriyanka NORAH WILD [id number] [facility] 2023-07-12 14:30:00 2023-07-12 14:30:00 Outpatient DANIEL TUCKER NORAH WILD [id number] [facility] 2023-07-12 00:00:00 2023-07-12 00:00:00 Outpatient BONNIE GORDON [id number] [facility] 2023-07-12 00:00:00 2023-07-12 00:00:00 Outpatient KRISTENCYNTHIA NORAH WILD [id number] [facility] 2023-07-12 00:00:00 2023-07-12 00:00:00 Outpatient BONNIE GORDON [id number] [facility] 2023-07-07 00:00:00 2023-07-07 00:00:00 Outpatient PRETERISMAX [id number] [facility] Sey[facility] 2023-07-06 00:00:00 2023-07-06 00:00:00 Outpatient NORAH WILD [id number] [facility] Sey[facility] 2023-07-06 00:00:00 2023-07-06 00:00:00 Outpatient PREZAS, MAX NORAH WILD [id number] [facility] 2023-06-23 14:00:00 2023-06-23 14:00:00 Outpatient LINOARISTEO NORAH WILD [id number] [facility] 2023-06-17 15:00:00 2023-06-17 15:00:00 Outpatient PREZAS MAX WILD [id number] [facility] 2023-06-14 00:00:00 2023-06-14 00:00:00 Outpatient PREZAS MAX WILD [id number] [facility] 2023-06-13 11:45:00 2023-06-13 11:45:00 Outpatient LAB90 NORAH WILD [id number] [facility] Sey[facility] 2023-06-13 00:00:00 2023-06-13 00:00:00 Outpatient BONNIE GORDON [id number] [facility] 2023-06-06 00:00:00 2023-06-06 00:00:00 Outpatient PREZAS, MAX NORAH WILD [id number] [facility] 2023-06-05 00:00:00 2023-06-05 00:00:00 Outpatient TIE ARISTEO WILD [id number] [facility] 2023-06-05 00:00:00 2023-06-05 00:00:00 Outpatient JOLIEESPERANZA CANADA NORAH WILD [id number] [facility] 2023-06-03 00:00:00 2023-06-03 00:00:00 Outpatient BONNIE GORDON [id number] [facility] 2023-05-30 00:00:00 2023-05-30 00:00:00 Outpatient BONNIE GORDON [id number] [facility] 2023-05-30 00:00:00 2023-05-30 00:00:00 Outpatient PREZAS, MAX NORAH WILD [id number] [facility] 2023-05-23 00:00:00 2023-05-23 00:00:00 Outpatient EVAN BONNIECHARLI WILD [id number] [facility] 2023-05-23 00:00:00 2023-05-23 00:00:00 Outpatient NORAH WILD [id number] [facility] 2023-05-19 15:15:00 2023-05-19 15:15:00 Outpatient TIE, ARISTEORITESH WILD [id number] [facility] 2023-05-19 00:00:00 2023-05-19 00:00:00 Outpatient PREZAS, MAXALYSHA WILD [id number] [facility] 2023-05-18 00:00:00 2023-05-18 00:00:00 Outpatient PREZAS, MAX WILD [id number] [facility] 2023-05-08 00:00:00 2023-05-08 00:00:00 Outpatient BONNIE GORDON [id number] [facility] 2023-05-06 14:30:00 2023-05-06 14:30:00 Outpatient ESPERANZA HARPER NORAH WILD [id number] [facility] 2023-05-04 00:00:00 2023-05-04 00:00:00 Outpatient LINO ARISTEO NORAH WILD [id number] [facility] 2023-05-02 15:45:00 2023-05-02 15:45:00 Outpatient LINO, ARISTEO WILD [id number] [facility] 2023-05-02 00:00:00 2023-05-02 00:00:00 Outpatient BONNIE GORDON [id number] [facility] 2023-04-18 15:00:00 2023-04-18 15:00:00 Outpatient MAX NICHOLS [id number] [facility] 2023-04-13 14:00:00 2023-04-13 14:00:00 Outpatient AMARAL, HINABOLA WILD [id number] [facility] 2023-04-13 00:00:00 2023-04-13 00:00:00 Outpatient AMARAL, HINA WILD [id number] [facility] 2023-04-05 00:00:00 2023-04-05 00:00:00 Outpatient AMARAL, HINA WILD [id number] [facility] 2023-04-04 00:00:00 2023-04-04 00:00:00 Outpatient AMARAL, HINABOLA WILD [id number] [facility] 2023-03-31 00:00:00 2023-03-31 00:00:00 Outpatient AMARAL, HINABOLA WILD [id number] [facility] 2023-03-28 13:30:00 2023-03-28 13:30:00 Outpatient FELA COLLADO [id number] [facility] 2023-03-26 00:00:00 2023-03-26 00:00:00 Outpatient AMARAL, HINAMARIO WILD [id number] [facility] 2023-03-16 00:00:00 2023-03-16 00:00:00 Outpatient NORAH WILD [id number] [facility] Gonzales 2023-03-15 13:30:00 2023-03-15 13:30:00 Outpatient ENG NORAH WILD [id number] [facility] 2023-03-15 00:00:00 2023-03-15 00:00:00 Outpatient LINO ARISTEORITESH WILD [id number] [facility] 2023-03-13 00:00:00 2023-03-13 00:00:00 Outpatient MAX NICHOLS [id number] [facility] 2023-03-11 15:40:00 2023-03-11 15:40:00 Outpatient ALYSSA WILD [id number] [facility] 2023-03-11 00:00:00 2023-03-11 00:00:00 Outpatient MAX NICHOLS [id number] [facility] 2023-03-10 00:00:00 2023-03-10 00:00:00 Outpatient BONNIE GORDON [id number] [facility] 2023-03-09 00:00:00 2023-03-09 00:00:00 Outpatient BONNIE GORDON [id number] [facility] 2023-03-02 00:00:00 2023-03-02 00:00:00 [facility] VISIT [facility] [id number] 2023-03-01 00:00:00 2023-03-01 00:00:00 Outpatient JACINDA SHARPE [id number] [facility] 2023-02-28 00:00:00 2023-02-28 00:00:00 Outpatient MAX NICHOLS [id number] [facility] 2023-02-28 00:00:00 2023-02-28 00:00:00 Outpatient MAX NICHOLS [id number] [facility] 2023-02-24 15:00:00 2023-02-24 15:00:00 Outpatient RISHISUNDAR SEGURALOPE NORAH WILD [id number] [facility] 2023-02-24 00:00:00 2023-02-24 00:00:00 Outpatient FANSUNDAR SEGURALOPE NORAH WILD [id number] [facility] 2023-02-22 00:00:00 2023-02-22 00:00:00 Outpatient NORAH WILD [id number] [facility] 2023-02-22 00:00:00 2023-02-22 00:00:00 Outpatient BONNIE GORDON [id number] [facility] 2023-02-21 00:00:00 2023-02-21 00:00:00 Outpatient PREHESHAMMAX [facility]AH WILD [id number] [facility] 2023-02-18 00:00:00 2023-02-18 00:00:00 Outpatient PREZASMAX [id number] [facility] 2023-02-18 00:00:00 2023-02-18 00:00:00 Outpatient PREZASMAX NORAH WILD [id number] [facility] 2023-02-14 13:40:00 2023-02-14 13:40:00 Outpatient AMARALABHINA NORAH WILD [id number] [facility] 2023-02-14 00:00:00 2023-02-14 00:00:00 Outpatient DELLSUNDARJACINDA NORAH WILD [id number] [facility] 2023-02-10 00:00:00 2023-02-10 00:00:00 Outpatient BONNIE GORDON [id number] [facility] 2023-02-10 00:00:00 2023-02-10 00:00:00 Outpatient BONNIE GORDON [id number] [facility] 2023-02-10 00:00:00 2023-02-10 00:00:00 Outpatient DELL JACINDA NORAH WILD [id number] [facility] 2023-02-06 15:15:00 2023-02-06 15:15:00 Outpatient SHAZIASUYAPA NORAH WILD [id number] [facility] 2023-02-06 00:00:00 2023-02-06 00:00:00 Outpatient RISHISUNDAR SEGURALOPE NORAH WILD [id number] [facility] 2023-02-03 00:00:00 2023-02-03 00:00:00 Outpatient MAX NICHOLS [id number] [facility] 2023-01-31 00:00:00 2023-01-31 00:00:00 Outpatient BONNIE GORDON [id number] [facility] 2023-01-31 00:00:00 2023-01-31 00:00:00 Outpatient BONNIE GORDON [id number] [facility] 2023-01-27 14:35:00 2023-01-27 14:35:00 Outpatient LAB39 NORAH WILD [id number] [facility] 2023-01-27 14:00:00 2023-01-27 14:00:00 Outpatient FANNON, JACINDA NORAH WILD [id number] [facility] 2023-01-27 00:00:00 2023-01-27 00:00:00 Outpatient FANCOLTON, JACINDA NORAH WILD [id number] [facility] 2023-01-26 00:00:00 2023-01-26 00:00:00 Outpatient FANCOLTON, JACINDA NORAH WILD [id number] [facility] 2023-01-25 15:20:00 2023-01-25 15:20:00 Outpatient FANNON, JACINDA NORAH WILD [id number] [facility] 2023-01-25 00:00:00 2023-01-25 00:00:00 Outpatient BONNIE GORDON [id number] [facility] 2023-01-25 00:00:00 2023-01-25 00:00:00 Outpatient NORAH WILD [id number] [facility] 2023-01-24 00:00:00 2023-01-24 00:00:00 Outpatient PREZAMAX Mccann NORAH WILD [id number] [facility] 2023-01-24 00:00:00 2023-01-24 00:00:00 Outpatient MXA NICHOLS NORAH WILD [id number] [facility] 2023-01-24 00:00:00 2023-01-24 00:00:00 Outpatient MAX NICHOLS NORAH WILD [id number] [facility] 2023-01-24 00:00:00 2023-01-24 00:00:00 Outpatient BONNIE GORDON [id number] [facility] 2023-01-21 15:35:00 2023-01-21 15:35:00 Outpatient LAB90 NORAH WILD [id number] [facility] 2023-01-20 16:30:00 2023-01-20 16:30:00 Outpatient LAB90 NORAH WILD [id number] [facility] 2023-01-20 00:00:00 2023-01-20 00:00:00 Outpatient MAX NICHOLS NORAH WILD [id number] [facility] 2023-01-18 15:45:00 2023-01-18 15:45:00 Outpatient GARRETTDANIEL NORAH WILD [id number] [facility] 2023-01-18 14:30:00 2023-01-18 14:30:00 Outpatient ESPERANZA HARPER [id number] [facility] 2023-01-18 00:00:00 2023-01-18 00:00:00 Outpatient BONNIE GORDON [id number] [facility] 2023-01-17 00:00:00 2023-01-17 00:00:00 Outpatient BONNIE GORDON [id number] [facility] 2023-01-04 00:00:00 2023-01-04 00:00:00 Outpatient BONNIE GORDON [id number] [facility] 2023-01-04 00:00:00 2023-01-04 00:00:00 Outpatient NORAH WILD [id number] [facility] 2023-01-04 00:00:00 2023-01-04 00:00:00 Outpatient NORAH WILD [id number] [facility] 2023-01-03 14:30:00 2023-01-03 14:30:00 Outpatient EVAN BONNIE WILD [id number] [facility] 2022-12-29 14:45:00 2022-12-29 14:45:00 Outpatient ESPERANZA HARPER NORAH WILD [id number] [facility] 2022-12-21 00:00:00 2022-12-21 00:00:00 Outpatient BONNIE GORDON [id number] [facility] 2022-12-20 00:00:00 2022-12-20 00:00:00 Outpatient MAX NICHOLS [id number] [facility] 2022-12-17 00:00:00 2022-12-17 00:00:00 (TEL) STLMLC STLMLC [id number] [facility] 2022-12-14 00:00:00 2022-12-14 00:00:00 ([place]) Nurse Visit STLMLC STLMLC [id number] [facility] 2022-12-09 16:15:00 2022-12-09 16:15:00 Outpatient BONNIE GORDON [id number] [facility] 2022-12-09 00:00:00 2022-12-09 00:00:00 OFFICE VISIT ESTAB PT LEVEL 5 STLMLC STLMLC [id number] [facility] 2022-12-06 16:00:00 2022-12-06 16:00:00 Outpatient MAX NICHOLS [id number] [facility] 2022-11-30 00:00:00 2022-11-30 00:00:00 Outpatient MAX NICHOLS [id number] [facility] 2022-11-30 00:00:00 2022-11-30 00:00:00 Outpatient MAX NICHOLS [id number] [facility] Gonzales 2022-11-29 15:30:00 2022-11-29 15:30:00 Outpatient LUZ MARIA LOUIS NORAH NORAH [id number] [facility] 2022-11-26 00:00:00 2022-11-26 00:00:00 Outpatient NORAH WILD [id number] [facility] Gonzales 2022-11-26 00:00:00 2022-11-26 00:00:00 Outpatient MAX NICHOLS NORAH NORAH [id number] [facility] 2022-11-25 00:00:00 2022-11-25 00:00:00 Outpatient MAX NICHOLS NORAH WILD [id number] [facility] 2022-11-23 00:00:00 2022-11-23 00:00:00 Outpatient NORAH WILD [id number] [facility] 2022-11-17 00:00:00 2022-11-17 00:00:00 Outpatient ESPERANZA HARPER [id number] [facility] 2022 00:00:00 2022 00:00:00 Outpatient NORAH WILD [id number] [facility] nimisha 2022-11-12 00:00:00 2022-11-12 00:00:00 Outpatient NORAH WILD [id number] [facility] Janet 2022-11-08 00:00:00 2022-11-08 00:00:00 Outpatient NORAH WILD [id number] [facility] nimisha 2022-11-08 00:00:00 2022-11-08 00:00:00 Outpatient BONNIE GORDON [id number] [facility] 2022-11-05 14:30:00 2022-11-05 14:30:00 Outpatient ESPERANZA HARPER [id number] [facility] 2022-10-06 00:00:00 2022-10-06 00:00:00 Outpatient BONNIE GORDON [id number] [facility] 2022-10-01 00:00:00 2022-10-01 00:00:00 Outpatient BONNIE GORDON NORAH WILD [id number] [facility] 2022-09-01 00:00:00 2022-09-01 00:00:00 Outpatient EVANBONNIE ARNOLD NORAH WILD [id number] [facility] 2022-09-01 00:00:00 2022-09-01 00:00:00 [id number] 2022-08-31 00:00:00 2022-08-31 00:00:00 Outpatient EVAN, BONNIE WLID [id number] [facility] 2022-08-11 00:00:00 2022-08-11 00:00:00 Outpatient MAX NICHOLS [id number] [facility] 2022-08-09 14:50:00 2022-08-09 14:50:00 Outpatient LAB90 NORAH WILD [id number] [facility] 2022-08-09 00:00:00 2022-08-09 00:00:00 Outpatient BREEZY CEDENO [id number] [facility] 2022-08-05 00:00:00 2022-08-05 00:00:00 Outpatient ESPERANZA HARPER [id number] [facility] 2022-08-05 00:00:00 2022-08-05 00:00:00 Outpatient ESPERANZA HARPER [id number] [facility] 2022-08-04 15:45:00 2022-08-04 15:45:00 Outpatient EGL69-NZY NORAH WILD [id number] [facility] 2022-08-04 14:30:00 2022-08-04 14:45:00 Office Visit Esperanza Harper 1.2.840.114 350.1.13.13 1.2.7.2.686 [id number] [facility] 2022-08-04 00:00:00 2022-08-04 00:00:00 Outpatient BREEZY CEDENO [id number] [facility] 2022-08-02 10:45:00 2022-08-02 10:59:16 Telemedici ne Anh Dixon [facility] 1.2.840.114 350.1.13.13 1.2.7.2.686 [id number] [facility] 2022-07-31 15:15:00 2022-07-31 15:25:55 Telemedici ne Carolina Wadsworth A CLEAR SANCHEZ 1.2.840.114 350.1.13.13 1.2.7.2.686 [id number] [facility] 2022-07-31 11:15:00 2022-07-31 13:31:54 E-Visit Rosa Elena Kelly SMILEY 1.2.840.114 350.1.13.13 1.2.7.2.686 [id number] [facility] 2022-07-28 00:00:00 2022-07-28 00:00:00 Outpatient BONNIE GORDON [id number] [facility] 2022-07-26 16:15:00 2022-07-26 16:15:00 Outpatient LAB NORAH WILD [id number] [facility] 2022-07-26 16:00:00 2022-07-26 16:00:00 Outpatient BONNIE GORDON [id number] [facility] 2022-07-26 15:45:00 2022-07-26 16:00:00 Office [facility] [place] 1.2.840.114 350.1.13.13 1.2.7.2.686 [id number] [facility] 2022-06-23 00:00:00 2022-06-23 00:00:00 Outpatient BONNIE GORDON [id number] [facility] 2022-06-14 00:00:00 2022-06-14 00:00:00 Outpatient BONNIE GORDON NORAH WILD [id number] [facility] 2022-06-11 00:00:00 2022-06-11 00:00:00 Outpatient BONNIE GORDON NORAH WILD [id number] [facility] 2022-06-11 00:00:00 2022-06-11 00:00:00 Outpatient BONNIE GORDON NORAH WILD [id number] [facility] 2022-06-10 11:35:00 2022-06-10 11:35:00 Outpatient LAB90 NORAH WILD [id number] [facility] 2022-06-09 14:45:00 2022-06-09 15:15:00 Office Visit EvanBonnie arnold [place] 1.2.840.114 350.1.13.13 1.2.7.2.686 [id number] [facility] 2022-06-09 00:00:00 2022-06-09 00:00:00 Outpatient KAYCEEBREEZY NORAH WILD [id number] [facility] 2022-06-08 15:45:00 2022-06-08 15:45:00 Outpatient BONNIE GORDON NORAH WILD [id number] [facility] 2022-06-08 00:00:00 2022-06-08 00:00:00 Outpatient BONNIE GORODN NORAH WILD [id number] [facility] 2022-06-02 00:00:00 2022-06-02 00:00:00 Outpatient BEN GORDONCHARLI WILD [id number] [facility] 2022-06-01 00:00:00 2022-06-01 00:00:00 Outpatient EVAN BONNIE WILD [id number] [facility] 2022-06-01 00:00:00 2022-06-01 00:00:00 Outpatient EVAN BONNIE WILD [id number] [facility] 2022-05-28 00:00:00 2022-05-28 00:00:00 Outpatient EVAN BONNIE WILD [id number] [facility] 2022-05-27 15:45:00 2022-05-27 16:00:00 Office Visit Bonnie Gordon [place] 1.2.840.114 350.1.13.13 1.2.7.2.686 [id number] [facility] 2022-05-25 00:00:00 2022-05-25 00:00:00 Outpatient BONNIE GORDON NORAH WILD [id number] [facility] 2022-05-25 00:00:00 2022-05-25 00:00:00 Outpatient EVANBEN ARNOLDCHARLI WILD [id number] [facility] 2022-05-14 15:30:00 2022-05-14 15:45:00 Office Visit Bonnie Gordon [place] 1.2.840.114 350.1.13.13 1.2.7.2.686 [id number] [facility] 2022-05-12 00:00:00 2022-05-12 00:00:00 Outpatient BEN GORDONCHARLI WILD [id number] [facility] 2022-05-11 14:15:00 2022-05-11 18:01:31 [facility] 1.2.840.114 350.1.13.13 1.2.7.2.686 [id number] [facility] 2022-05-10 00:00:00 2022-05-10 00:00:00 Outpatient EVAN, BONNIE WILD [id number] [facility] 2022-04-22 00:00:00 2022-04-22 00:00:00 Outpatient BONNIE GORDON [id number] [facility] 2022-04-22 00:00:00 2022-04-22 00:00:00 Outpatient BONNIE GORDON [id number] [facility] 2022-04-19 00:00:00 2022-04-19 00:00:00 Outpatient BONNIE GORDON [id number] [facility] 2022-04-07 00:00:00 2022-04-07 00:00:00 Outpatient BONNIE GORDON NORAH WILD [id number] [facility] 2022-04-06 00:00:00 2022-04-06 00:00:00 Outpatient BONNIE GORDON NORAH WILD [id number] [facility] 2022-04-01 14:00:00 2022-04-01 14:10:05 Telemedici [place] Bonnie Gordon [place] 1.2.840.114 350.1.13.13 1.2.7.2.686 [id number] [facility] 2022-03-31 18:05:00 2022-03-31 18:05:00 Outpatient JULIANA PETE [id number] [facility] 2022-03-15 00:00:00 2022-03-15 00:00:00 Outpatient BONNIE GORDON NORAH WILD [id number] [facility] 2022-03-02 00:00:00 2022-03-02 00:00:00 Outpatient BREEZY CEDENO [id number] [facility] 2022-02-15 15:00:00 2022-02-15 15:00:00 Outpatient EVANBONNIE NORAH WILD [id number] [facility] 2022-02-10 00:00:00 2022-02-10 00:00:00 Outpatient EVANBONNIE ARNOLD [facility] WILD [id number] [facility] 2022-02-02 00:00:00 2022-02-02 00:00:00 Outpatient HUNDBREEZY Schafer [id number] [facility] 2022-02-01 00:00:00 2022-02-01 00:00:00 Outpatient BREEZY CEDENO [id number] [facility] 2022-01-27 15:50:00 2022-01-27 15:50:00 Outpatient LAB90 NORAH WILD [id number] [facility] 2022-01-27 14:45:00 2022-01-27 14:45:00 Outpatient EVAN, BONNIE NORAH WILD [id number] [facility] 2022-01-24 00:00:00 2022-01-24 00:00:00 Outpatient BREEZY CEDENO [id number] Norah Seybold 2021-12-25 00:00:00 2021-12-25 00:00:00 Outpatient EVAN, BONNIE NORAH WILD [id number] Norah Seybold 2021-12-25 00:00:00 2021-12-25 00:00:00 Outpatient EVAN, BONNIECHARLI WILD [id number] Norah Seybold 2021-12-25 00:00:00 2021-12-25 00:00:00 Outpatient NORAH WILD [id number] [facility] 2021-12-17 00:00:00 2021-12-17 00:00:00 Outpatient EVAN, BONNIE NORAH WILD [id number] [facility] 2021-11-11 00:00:00 2021-11-11 00:00:00 Outpatient EVAN, BONNIECHARLI WILD [id number] [facility] 2021-11-11 00:00:00 2021-11-11 00:00:00 Outpatient EVAN, BONNIE NORAH WILD [id number] [facility] 2021-11-09 00:00:00 2021-11-09 00:00:00 Outpatient EVAN, BONNIECHARLI WILD [id number] [facility] 2021-09-29 00:00:00 2021-09-29 00:00:00 Outpatient EVAN, BONNIE WILD [id number] [facility] 2021-09-25 00:00:00 2021-09-25 00:00:00 Outpatient EVAN, BONNIE WILD [id number] Norah Seybold 2021-09-25 00:00:00 2021-09-25 00:00:00 Outpatient BREEZY CEDENO [id number] Norah Seybold 2021-09-22 00:00:00 2021-09-22 00:00:00 Outpatient BREEZY CEDENO NORAH WILD [id number] Norah Gonzales 2021-09-21 00:00:00 2021-09-21 00:00:00 Outpatient BREEZY CEDENO NORAH WILD [id number] Norah Gonzales 2021-09-17 00:00:00 2021-09-17 00:00:00 Outpatient EVANBONNIE ARNOLD NORAH WILD [id number] Norah Gonzales 2021-09-16 13:15:00 2021-09-16 13:15:00 Outpatient [facility] NORAH WILD [id number] Norah Gonzales 2021-09-15 18:21:09 2021-09-15 18:30:24 [facility] [place] GuyBreezy schafer [place] [id number] Norah Gonzales 2021-09-10 00:00:00 2021-09-10 00:00:00 Outpatient KAYCEE BREEZY NORAH WILD [id number] Norah Gonzales 2021-09-10 00:00:00 2021-09-10 00:00:00 Outpatient BONNIE GORDON NORAH WILD [id number] Norah Gonzales 2021-09-09 00:00:00 2021-09-09 00:00:00 Outpatient EVANBONNIE ARNOLD NORAH WILD [id number] Norah Janet 2021-09-09 00:00:00 2021-09-09 00:00:00 Outpatient KAYCEE BREEZY WILD [id number] Norah Janet 2021-09-09 00:00:00 2021-09-09 00:00:00 Outpatient GUYGilmar BREEZY WILD [id number] Norah Janet 2021-09-09 00:00:00 2021-09-09 00:00:00 Outpatient GUYGilmar BREEZY WILD [id number] Norah Seybnimisha 2021-09-08 00:00:00 2021-09-08 00:00:00 Outpatient KAYCEE BREEZY WILD [id number] Norahroxana Gonzales 2021-09-08 00:00:00 2021-09-08 00:00:00 Outpatient EVANBONNIE NORAH WILD [id number] Norah Turnernimisha 2021-09-07 15:00:00 2021-09-07 15:00:00 Outpatient LAB90 NORAH WILD [id number] Norah Gonzales 2021-09-07 13:57:05 2021-09-07 14:27:05 Office Visit Breezy Cedeno [id number] Norah Turnernimisha 2021-09-07 00:00:00 2021-09-07 00:00:00 Outpatient BREEZY CEDENO NORAH WILD [id number] [facility] 2021-09-04 00:00:00 2021-09-04 00:00:00 Outpatient BONNIE GORDON [id number] [facility]:00 2021-08-27 00:00:00 Outpatient EVAN BONNIE WILD [id number] [facility] 2021-08-18 15:15:00 2021-08-18 15:15:00 Outpatient LAB90 NORAH WILD [id number] [facility] 2021-08-18 14:21:45 2021-08-18 14:51:45 Office Visit Bonnie Gordon [place] [id number] [facility] 2021-08-18 10:50:00 2021-08-18 10:50:00 Outpatient LAB90 NORAH WILD [id number] [facility] 2021-08-18 00:00:00 2021-08-18 00:00:00 Outpatient BONNIE GORDON [id number] [facility] 2021-08-11 14:30:00 2021-08-11 14:30:00 Outpatient BONNIE GORDON [id number] [facility] 2021-08-10 14:15:00 2021-08-10 14:15:00 Outpatient EVAN, BONNIECHARLI WILD [id number] [facility]-04 00:00:00 2021-08-04 00:00:00 [facility] [id number] [facility] 15:30:00 2021-07-28 15:30:00 Outpatient EVAN, BONNIECHARLI WILD [id number] Norah [facility] 2021-07-07 00:00:00 2021-07-07 00:00:00 Outpatient EVAN[facility] WILD [id number] [facility]07-[facility] 00:00:00 2021-07-06 00:00:00 Outpatient EVAN, [facility]ON[facility]IE WILD [id number] [facility] 2021-07-03 00:00:00 2021-07-03 00:00:00 Outpatient EVAN[facility]ON[facility]IE WILD [id number] [facility] 2021-07-02 15:30:00 2021-07-02 15:30:00 Outpatient EVAN[facility]ON[facility]IE WILD [id number] [facility] 2021-06-30 00:00:00 2021-06-30 00:00:00 Outpatient EVAN, BONNIE WILD [id number] [facility] 2021-06-25 00:00:00 2021-06-25 00:00:00 Outpatient EVAN[facility]ON[facility]IE [facility]ILD [id number] [facility] 2021-06-23 15:00:00 2021-06-23 15:00:00 Outpatient EVAN, BONNIE WILD [id number] [facility] 2021-06-17 00:00:00 2021-06-17 00:00:00 Outpatient EVAN, BONNIE WILD [id number] [facility] 2021-06-09 15:15:00 2021-06-09 15:15:00 Outpatient EVAN, BONNIE WILD [id number] [facility] 2021-06-09 00:00:00 2021-06-09 00:00:00 Outpatient BONNIE GORDON NORAH [id number] Norah Gonzales Results Test Description Test Time Test Comments Results Result Co mments Source GLUCOSE [id number] 08:06:00* Test Item Value Reference Range Interpretation Comme nts GLUCOSE BEDSIDE (test code = GLUBED) 126 MG/DL 70-110 H Performed by cer tified loading unit operator powder charging at [facility] GLUCOSE [id number] 14:28:00* Test Item Value Reference Range Interpretation Comme nts GLUCOSE BEDSIDE (test code = GLUBED) 137 MG/DL 70-110 H Performed by cer tified loading unit operator powder charging at [facility] BASIC METABOLIC [id number] 12:53:00* Test Item Value Reference Range Interpretation Comme nts SODIUM (test code = NA) 133 mEq/L 134-147 L POTASSIUM (test code = K) 4.6 mEq/L 3.4-5.0 N CHLORIDE (test code = CL) 99 mEq/L 100-108 L CARBON DIOXIDE (test code = CO2) 26 mEq/l 21-33 N ANION GAP (test code = GAP) 12 0-20 N GLUCOSE (test code = GLU) 102 mg/dL 77-141 N BLOOD UREA NITROGEN (test code = BUN) 18 mg/dL 7-25 N GLOMERULAR FILTRATION RATE (test code = GFR) 64.7 70-80 L The Glomerular Filtration Rate is a calculated parameterbased on serum Creatinine, patient age and sex. GFR valuesless than 60 mL/min/1.73 square meters are indicative ofChronic Kidney Disease. Values less than 15 mL/min/1.73square meters indicate Kidney failure. The calculation forGFR is based on the CKD-EPI (2020) calculation. This formulais race indifferent and is the recommended formula for GFRby the National Kidney Foundation for Adults.The GFR will not calculate if the sex is unknown or if thepatient's age is <18 years. CREATININE (test code = CREAT) 1.2 mg/dL 0.6-1.3 N CALCIUM (test code = CA) 9.7 mg/dL 8.0-10.5 N PROTHROMBIN [id number] 12:53:00* Test Item Value Reference Range Interpretation Comme [facility] PROTHROMBIN TIME PATIENT (test code = PTP) 15.1 SECONDS 9.3-12.9 H INTERNATIONAL NORMAL RATIO (test code = INR) 1.4 0.8-1.2 H TARGET INR BY INDICATION Indication INR1. Prophylaxis of venous thrombosis 2.0 - 3.0 (orthopedic surgery), Prophylaxis of venous thrombosis (other than high-risk surgery), Treatment of Deep Vein Thrombosis/Pulmonary Embolism, Prevention of systemic embolism - Tissue heart valves, Acute Myocardial Infarction (to prevent systemic embolism), Valvular heart disease, Atrial Fibrillation, Bileaflet mechanical valve in aortic position.2. Mechanical prosthetic valves (high risk), 2.5 - 3.5 Presence of Lupus Anticoagulant or Antiphospholipid Antibodies, Prevention of systemic embolism - Acute Myocardial Infarction (to prevent recurrent infarct). CBC W/AUTO [id number] 12:40:00* Test Item Value Reference Range Interpretation Comme nts WHITE BLOOD CELL (test code = WBC) 10.7 x10 3/uL 4.5-11.0 N RED BLOOD CELL (test code = RBC) 4.06 x10 6/uL 4.00-5.60 N HEMOGLOBIN (test code = HGB) 11.4 g/dL 12.5-16.9 L HEMATOCRIT (test code = HCT) 35.8 % 37.5-50.7 L MEAN CELL VOLUME (test code = MCV) 88.2 fL 81.0-99.0 N MEAN CELL HGB (test code = MCH) 28.1 pg 27.0-33.0 N MEAN CELL HGB CONCETRATION (test code = MCHC) 31.8 g/dL 33.0-37.0 L RED CELL DISTRIBUTION WIDTH CV (test code = RDW) 14.6 % 11.5-14.5 H RED CELL DISTRIBUTION WIDTH SD (test code = RDW-SD) 46.8 fL 37.0-54.0 N PLATELET COUNT (test code = PLT) 289 x10 3/uL 150-400 N MEAN PLATELET VOLUME (test c ode = MPV) 9.4 fL 7.0-9.0 H NEUTROPHIL % (test code = NT%) 66.7 % 56.0-77.0 N IMMATURE GRANULOCYTE % (test code = IG%) 0.8 % 0.0-2.0 N LYMPHOCYTE % (test code = LY%) 20.2 % 14.0-32.0 N MONOCYTE % (test code = MO%) 10.0 % 4.8-9.0 H EOSINOPHIL % (test code = EO%) 1.9 % 0.3-3.7 N BASOPHIL % (test code = BA%) 0.4 % 0.0-2.0 N NUCLEATED RBC % (test code = NRBC%) 0.0 % 0-0 N NEUTROPHIL # (test code = NT#) 7.15 x10 3/uL 2.0-7.6 N IMMATURE GRANULOCYTE # (test code = IG#) 0.09 x10 3/uL 0.00-0.03 H LYMPHOCYTE # (test code = LY#) 2.16 x10 3/uL 1.0-3.8 N MONOCYTE # (test code = MO#) 1.07 x10 3/uL 0.1-0.8 H EOSINOPHIL # (test code = EO#) 0.20 x10 3/uL 0.0-0.2 N BASOPHIL # (test code = BA#) 0.04 x10 3/uL 0.0-0.2 N NUCLEATED RBC # (test code = NRBC#) 0.00 x10 3/uL 0.0-0.1 N GLUCOSE [id number] 10:22:00* Test Item Value Reference Range Interpretation Comme nts GLUCOSE BEDSIDE (test code = GLUBED) 123 MG/DL 70-110 H Performed by avery donahue loading unit operator powder charging at [facility] BASIC METABOLIC [id number] 15:46:00* Test Item Value Reference Range Interpretation Comme nts SODIUM (test code = NA) 134 mEq/L 134-147 N POTASSIUM (test code = K) 4.6 mEq/L 3.4-5.0 N CHLORIDE (test code = CL) 103 mEq/L 100-108 N CARBON DIOXIDE (test code = CO2) 25 mEq/l 21-33 N ANION GAP (test code = GAP) 11 0-20 N GLUCOSE (test code = GLU) 112 mg/dL 77-141 N BLOOD UREA NITROGEN (test code = BUN) 14 mg/dL 7-25 N GLOMERULAR FILTRATION RATE (test code = GFR) 58.7 70-80 L The Glomerular Filtration Rate is a calculated parameterbased on serum Creatinine, patient age and sex. GFR valuesless than 60 mL/min/1.73 square meters are indicative ofChronic Kidney Disease. Values less than 15 mL/min/1.73square meters indicate Kidney failure. The calculation forGFR is based on the CKD-EPI (2020) calculation. This formulais race indifferent and is the recommended formula for GFRby the National Kidney Foundation for Adults.The GFR will not calculate if the sex is unknown or if thepatient's age is <18 years. CREATININE (test code = CREAT) 1.3 mg/dL 0.6-1.3 N CALCIUM (test code = CA) 10.2 mg/dL 8.0-10.5 N PROTHROMBIN [id number] 15:41:00* Test Item Value Reference Range Interpretation Comme nts PROTHROMBIN TIME PATIENT (test code = PTP) 12.0 SECONDS 9.3-12.9 N INTERNATIONAL NORMAL RATIO (test code = INR) 1.1 0.8-1.2 N TARGET INR BY INDICATION Indication INR1. Prophylaxis of venous thrombosis 2.0 - 3.0 (orthopedic surgery), Prophylaxis of venous thrombosis (other than high-risk surgery), Treatment of Deep Vein Thrombosis/Pulmonary Embolism, Prevention of systemic embolism - Tissue heart valves, Acute Myocardial Infarction (to prevent systemic embolism), Valvular heart disease, Atrial Fibrillation, Bileaflet mechanical valve in aortic position.2. Mechanical prosthetic valves (high risk), 2.5 - 3.5 Presence of Lupus Anticoagulant or Antiphospholipid Antibodies, Prevention of systemic embolism - Acute Myocardial Infarction (to prevent recurrent infarct). CBC W/AUTO [id number] 15:34:00* Test Item Value Reference Range Interpretation Comme nts WHITE BLOOD CELL (test code = WBC) 11.3 x10 3/uL 4.5-11.0 H RED BLOOD CELL (test code = RBC) 4.08 x10 6/uL 4.00-5.60 N HEMOGLOBIN (test code = HGB) 11.5 g/dL 12.5-16.9 L HEMATOCRIT (test code = HCT) 35.8 % 37.5-50.7 L MEAN CELL VOLUME (test code = MCV) 87.7 fL 81.0-99.0 N MEAN CELL HGB (test code = MCH) 28.2 pg 27.0-33.0 N MEAN CELL HGB CONCETRATION (test code = MCHC) 32.1 g/dL 33.0-37.0 L RED CELL DISTRIBUTION WIDTH CV (test code = RDW) 13.9 % 11.5-14.5 N RED CELL DISTRIBUTION WIDTH SD (test code = RDW-SD) 44.8 fL 37.0-54.0 N PLATELET COUNT (test code = PLT) 322 x10 3/uL 150-400 N MEAN PLATELET VOLUME (test c ode = MPV) 9.0 fL 7.0-9.0 N NEUTROPHIL % (test code = NT%) 67.7 % 56.0-77.0 N IMMATURE GRANULOCYTE % (test code = IG%) 1.4 % 0.0-2.0 N LYMPHOCYTE % (test code = LY%) 18.8 % 14.0-32.0 N MONOCYTE % (test code = MO%) 9.5 % 4.8-9.0 H EOSINOPHIL % (test code = EO%) 2.0 % 0.3-3.7 N BASOPHIL % (test code = BA%) 0.6 % 0.0-2.0 N NUCLEATED RBC % (test code = NRBC%) 0.0 % 0-0 N NEUTROPHIL # (test code = NT#) 7.62 x10 3/uL 2.0-7.6 H IMMATURE GRANULOCYTE # (test code = IG#) 0.16 x10 3/uL 0.00-0.03 H LYMPHOCYTE # (test code = LY#) 2.11 x10 3/uL 1.0-3.8 N MONOCYTE # (test code = MO#) 1.07 x10 3/uL 0.1-0.8 H EOSINOPHIL # (test code = EO#) 0.22 x10 3/uL 0.0-0.2 H BASOPHIL # (test code = BA#) 0.07 x10 3/uL 0.0-0.2 N NUCLEATED RBC # (test code = NRBC#) 0.00 x10 3/uL 0.0-0.1 N - XR CHEST 2 [id number] 15:34:00 [facility] 1950 Sex: M FAX: Hollis Valdivia MD [phone] Page: St: PRE Name: FELA BOBBY [facility] : 1950 Age/S: 73/M [address] [place] [address] Unit #: [id number] Loc: [place] [address] Phys: Hollis Jauregui MD Acct: [id number] Dis Date: Status: PRE SDC PHONE #: [phone] Exam Date: 01/09/2024 1526 FAX #: [phone] Reason: PRE OP EXAMS: CPT CODE: [id number] XR CHEST 2 V 25474 Location code: B2 HISTORY:Preop TECHNIQUE: Frontal and lateral views of the chest were obtained. FINDINGS: The cardiomediastinal silhouette is mildly enlarged. The trachea is midline. Mild interstitial coarsening. There is noeffusion or pneumothorax. The bones are intact. IMPRESSION: Mild cardiomegaly at 1534 Reported and signed by: Ga Oneill M.D. CC: Hollis Jauregui MD Technologist: RT Case(Mary Ellen) Trnscrd Date/Time/By: 01/09/2024 (153) : By: [email or web address] Orig Print D/T: S: 01/09/2024 (0507) PAGE 1 Signed ReportUS URINE CAPACITY [id number] 00:00:00* Test Item Value Reference Range Interpretation Comme nts RESIDUAL URINE VOLUME (test code = 5061) 0 cc Norah Gonzales - ExternalECG- [id number] 20:52:18* Test Item Value Reference Range Interpretation Comme nts VENTRICULAR RATE (test code = 94702) BPM ATRIAL RATE (test code = 46904) BPM P-R INTERVAL (test code = 50281) 162 ms QRS DURATION (test code = 80568) 80 ms Q-T INTERVAL (test code = 38144) 364 ms QTC CALCULATION(BEZE (test code = 13942) 433 ms CALCULATED P AXIS (test code = 11975) degrees CALCULATED R AXIS (test code = 75067) degrees CALCULATED T AXIS (test code = 05537) degrees DIAGNOSIS (test code = 18648) Sinus rhythm with marked sinus arrhythmiaOtherwise normal ECGWhen compared with ECG of 23-JUN-2021 15:28,No significant change was foundConfirmed by MARK HENRIQUEZ ([id number]) on 09/07/2021 3:52:16 PM Norahroxana GonzalesURINALYSIS NONAUTO W/O [id number] 20:10:00* Test Item Value Reference Range Interpretation Comme nts UD KETONES (test code = 057432) 5 mg/dL 5-160 UD GLUCOSE (test code = 180193) neg 100-2000 UD PROTEIN (test code = 355258) neg Trace - 2000 mg/dL UD LEUKOCYTES (test code = 706986) neg Trace - Large @ 2 min. UD NITRITE (test code = 078117) neg Neg. - Pos. @ 60 sec. UD UROBILINOGEN (test code = 042262) 0.2 mg/dL 0.2-8 UD PH (test code = 060144) See_Comment [Automated messa ge] The system which generated this result transmitted reference range: 5.0 - 8.5 @ 60 sec.. The reference range was not used to interpret this result as normal/abnormal. UD BLOOD (test code = 934069) neg Neg. - Large @ 60 sec. UD SPECIFIC GRAVITY (test code = 190002) See_Comment [Automated message] The system which generated this result transmitted reference range: 1.000 - 1.030 @ 45 sec.. The reference range was not used to interpret this result as normal/abnormal. UD BILIRUBIN (test code = 843058) neg Neg. - Large @ 45 sec. Lab Interpretation (test code = 91104-1) Normal Norah Gonzales Notes Date/Time Note Provider Source 2024-10-16 17:18:00 [id number] [address] PATIENT NAME: FELA BOBBY ADMIT DATE: 10/16/24 ACCOUNT NO: [id number] ROOM NO: AGE: 73 REPORT TYPE: OPERATIVE REPORT SEX: M ADMITTING PHYSICIAN: ATTENDING PHYSICIAN:Greg Peralta MD OPERATION DATE: 10/16/2024 PREOPERATIVE DIAGNOSES: 1. Paroxysmal atrial fibrillation. 2. Palpitations. POSTOPERATIVE DIAGNOSES: 1. Paroxysmal atrial fibrillation. 2. Palpitations. ATTENDING PHYSICIAN: Greg Machado MD MANAGER EQUITY: ESTIMATED BLOOD LOSS: 20 mL PROCEDURE PERFORMED: 1. Electrophysiology study. 2. Ablation of atrial fibrillation. 3. Additional linear ablation in the left atrium for atrial fibrillation. 4. Catheter mapping. ANESTHESIA: General. DESCRIPTION OF PROCEDURE: After informed consent was obtained, the patient was brought to the electrophysiology laboratory in a fasting sedated state. Area over his groin was prepped and draped in the usual sterile fashion. General anesthesia was started. Vascular access was obtained x2 in the right common femoral vein under ultrasound. Intracardiac echo demonstrated no pericardial effusion. No thrombus in the left atrial appendage. Heparin was given to maintain ACT greater than 350. Transseptal access was performed x1. The 4 pulmonary veins were identified under fluoroscopy. We then performed pulse field ablation at the ostium of the pulmonary veins using the basket configuration x2 lesions then rotated a few degrees then 2 more lesions then flower configuration x2 lesions rotated a few degrees and delivered 2 more lesions. These protocol was followed on all the pulmonary veins until all veins were isolated. We then performed additional linear ablation in the left atrial posterior wall using the flower configuration x2 lesions on each location until successful isolation. At the end, we performed pacing maneuvers. The patient remained in sinus rhythm. We demonstrated entrance and exit block in all 4 pulmonary veins and the posterior wall as well. There was no pericardial effusion and we gave protamine. We used Perclose and Vascade. The patient tolerated the procedure well. Procedure was complete. PATIENT NAME: FELA BOBBY IMPRESSION: 1. Sinus rhythm on presentation. 2. Successful pulmonary vein isolation and isolation of the left atrial posterior wall using pulse field ablation. PLAN: 1. Routine postop monitoring on telemetry. 2. Continue oral anticoagulation and current medicines. 3. Follow up in 1-2 weeks. Total lesions in the liver in this case 68 lesions. Dictated By: Greg Machado MD Date Dictated: 10/16/2024 17:18:51 Date Transcribed: 10/16/2024 19:34:38 [facility] Receipt ID: [id number] Authenticated by Greg Machado MD On 10/17/2024 02:29:16 PM at 0229 PATIENT NAME: FELA BOBBY [facility] 2024-10-16 11:51:00 [id number] [place] [address] PATIENT NAME: FELA BOBBY ADMIT DATE: 10/16/24 ACCOUNT NO: [id number] ROOM NO: AGE: 73 REPORT TYPE: eELECTROCARDIOGRAM REPORT SEX: M ADMITTING PHYSICIAN: ATTENDING PHYSICIAN:Greg Peralta MD Order: [id number] Test Reason : S/P PVI Test Date/Time Stamp: TueOct 16 2024 11:51:14 Blood Pressure : / mmHG Vent. Rate : 074 BPM Atrial Rate : 074 BPM P-R Int : 200 ms QRS Dur : 094 ms QT Int : 390 ms P-R-T Axes : 068 017 062 degrees QTc Int : 432 ms Normal sinus rhythm Cannot rule out Inferior infarct , age undetermined Abnormal ECG When compared with ECG of 12-OCT-2024 12:22, No significant change was found Confirmed by ABEL DAS MD ([id number]) on 10/17/2024 8:08:31 AM Referred By: Greg Machado Confirmed by:ABEL DAS MD at 0808 PATIENT NAME: FELA BOBBY [facility] 2024-10-12 12:22:00 [id number] [place] [address] PATIENT NAME: FELA BOBBY ADMIT DATE: ACCOUNT NO: [id number] ROOM NO: AGE: 73 REPORT TYPE: eELECTROCARDIOGRAM REPORT SEX: M ADMITTING PHYSICIAN: ATTENDING PHYSICIAN:Greg Peralta MD Order: [id number] Test Reason : PREOP Test Date/Time Stamp: TueOct 12 2024 12:22:24 Blood Pressure : / mmHG Vent. Rate : 075 BPM Atrial Rate : 075 BPM P-R Int : 120 ms QRS Dur : 082 ms QT Int : 358 ms P-R-T Axes : 060 042 049 degrees QTc Int : 399 ms Normal sinus rhythm Low voltage QRS Borderline ECG When compared with ECG of 09-JAN-2024 15:19, Significant changes have occurred Confirmed by ABEL DAS MD ([id number]) on 10/12/2024 2:11:45 PM Referred By: Greg Machado Confirmed by:ABEL DAS MD at 1411 PATIENT NAME: FELA BOBBY [facility] 2024-08-08 14:42:29 Chief Complaint Patient presents with Skin Problem UBSE Taisha Boston Taisha Boston [facility] 2024-07-12 14:48:08 Fela Bobby is a 73 year old male Chief Complaint Patient presents with Follow-Up Visit BPH Sara Cesar MA II 07/12/2024 2:48 PM [facility] 2024-01-11 11:10:00 [id number] [place] [address] PATIENT NAME: FELA BOBBY ADMIT DATE: 01/11/24 ACCOUNT NO: [id number] ROOM NO: AGE: 73 REPORT TYPE: CARDIAC CATHETERIZATION REPORT SEX: M ADMITTING PHYSICIAN: ATTENDING PHYSICIAN:Hollis Jauregui MD PROCEDURE DATE: 01/11/2024 PROCEDURES PERFORMED: 1. Selective coronary angiogram. 2. Left heart catheterization. INDICATION: Chest pain with abnormal stress test. ACCESS: Right radial artery 6-Greek closed with TR band. COMPLICATIONS: None BLEEDING: Less than 20 mL. TOTAL SEDATION TIME: 45 minutes, used fentanyl and Versed. DESCRIPTION OF PROCEDURE: After risks, benefits and alternatives were explained, the patient agreed to proceed and signed informed consent, the patient was brought in to the cardiac catheterization laboratory, prepped and draped in usual sterile fashion. Then, I accessed right radial artery using pediatric micropuncture kit, placed 6-Greek slender sheath, took 5-Greek Union 4.0 catheter over J wire into the aortic root, engaged the left main, took standard views, and then the RCA and took standard views and the catheter was pushed over the wire into the LV, measured LVEDP. Pullback not recorded any gradient. Then, removed the catheter and the sheath and placed TR band with good hemostasis. FINDINGS: 1. Left main, large and normal. 2. LAD, proximal segment is normal. Mid segment, there is focal 30% to 40% stenosis. Diagonal branch is normal. Rest of the LAD is normal. 3. Left circumflex, moderate size and normal. Normal OM branches. 4. RCA, large and dominant and normal. 5. Elevated LVEDP at 21 mmHg. CONCLUSION: 1. Mild nonobstructive coronary artery disease. 2. Elevated LVEDP. RECOMMENDATION: Medical management. Dictated By: Hollis Jauregui MD PATIENT NAME: FELA BOBBY Margaret Date Dictated: 01/11/2024 11:10:27 Date Transcribed: 01/11/2024 11:34:48 /KANA Receipt ID: [id number] Authenticated by Hollis Jauregui MD On 02/21/2024 08:08:46 AM at 0808 PATIENT NAME: FELA BOBBY Margaret [facility] 2024-01-09 15:19:00 [id number] [place] [id number] PATIENT NAME: FELA BOBBY ADMIT DATE: 01/11/24 ACCOUNT NO: [id number] ROOM NO: AGE: 73 REPORT TYPE: eELECTROCARDIOGRAM REPORT SEX: M ADMITTING PHYSICIAN: ATTENDING PHYSICIAN:Hollis Jauregui MD Order: [id number] Test Reason : PREOP Test Date/Time Stamp: TueJan 09 2024 15:19:19 Blood Pressure : / mmHG Vent. Rate : 079 BPM Atrial Rate : 079 BPM P-R Int : 196 ms QRS Dur : 080 ms QT Int : 360 ms P-R-T Axes : 057 042 068 degrees QTc Int : 412 ms Sinus rhythm with premature atrial complexes Otherwise normal ECG No previous ECGs available Confirmed by CARLOTA DONATO ([id number]) on 01/12/2024 9:05:05 AM Referred By: Hollis Jauregui Confirmed by:CARLOTA DONATO at 0905 PATIENT NAME: FELA BOBBY [facility]
--- NOTE | 2024-10-25 06:13 | RAD REPORT ---
EXAM: US Duplex Right Lower Extremity Veins CLINICAL HISTORY: The patient is 73 years old and is Male; right groin hematoma TECHNIQUE: Real-time duplex ultrasound scan of the right lower extremity veins integrating B-mode t wo-dimensional vascular structure, Doppler spectral analysis, color flow Doppler imaging and Impression. COMPARISON: No relevant prior studies available. FINDINGS: Deep veins: Unremarkable. No DVT in the visualized common femoral, femoral, or popliteal veins. The veins demonstrate normal color flow, are normally compressible where visualized, with normal phasic flow and/or augmentation response. Soft tissues: Small nonspecific 2.8 cm fluid collection in the right groin. Soft tissue edema in the calf. IMPRESSION: No evidence of DVT in the right lower extremity veins. Electronically signed by: Abhijeet Hernandez MD 10/25/2024 06:10 AM [facility] 8 Due to temporary technical issues with the PACS/[employer] scribe reporting system, reports are being signed by the in-house radiologist without review as a courtesy to ensure prompt reporting the interpreting radiologist is fully responsible for the content of the report. Transcribed Date/Time: 10/25/2024 6:13 AM
--- NOTE | 2024-10-25 06:47 | RAD REPORT ---
PROCEDURE: US Duplex Right Lower Extremity Arteries CLINICAL INDICATION: The patient is 73 years old and is Male; right groin hematoma Bed Name: 18 TECHNIQUE: Real-time duplex ultrasound scan of the right lower extremity arteries integrating B-mode two-dimensi onal vascular structure, Doppler spectral analysis and color flow Doppler imaging. COMPARISON: No relevant prior studies available. FINDINGS: RIGHT COMMON FEMORAL ARTERY: Peak systolic velocity in the right common femoral artery is 170 cm/s. Normal waveform. No acute findings. RIGHT SUPERFICIAL FEMORAL ARTERY: Peak systolic velocity in the right superficial femoral artery is 155 cm/s. Normal waveform. No acute findings. RIGHT POPLITEAL ARTERY: No acute findings. Normal waveform. Peak systolic velocity in the right popliteal artery is 62 cm/s. RIGHT CALF/FOOT ARTERIES: No acute findings. Normal waveform. Peak systolic velocity in the right posterior tibial artery is 93 cm/s. Peak systolic velocity in the right dorsalis pedis artery is 100 cm/s. SOFT TISSUES: Subcutaneous edema demonstrated in the subcutaneous tissues below the right knee. IMPRESSION: Subcutaneous edema demonstrated below the right knee. No acute findings in the right lower extremity arteries. Electronically signed by: Freeman Freedman MD 10/25/2024 06:44 AM [facility] Due to temporary technical issues with the PACS/Net Transmit & Receiveibe reporting system, reports are being signed by the in-house radiologist without review as a courtesy to ensure prompt reporting the interpreting radiologist is fully responsible for the content of the report. Transcribed Date/Time: 10/25/2024 6:47 AM
--- NOTE | 2024-10-25 07:07 | ER ---
Nurse's Notes [facility] Name: Erik Bobby Age: 73 yrs Sex: Male : 1950 Arrival Date: 10/25/2024 Time: 02:42 Bed 18 Private MD: Diagnosis: Acute right groin hematoma, Acute hematoma at the arterial puncture site at right common femoral artery Presentation: 10/25 03:10 Chief complaint: Patient states: CARDIAC ABLATION ON TUESDAY OF LAST WEEK AND ROBBIN [place] ha1 NOTICED A KNOT ON THE ON THE INCISION AREA. 03:10 Coronavirus screen: Vaccine status: At this time, the client does not indicate any ha1 symptoms associated with coronavirus-19. Ebola Screen: No symptoms or risks identified at this time. Initial Sepsis Screen: Does the patient meet any 2 criteria? No. Patient's initial sepsis screen is negative. Does the patient have a suspected source of infection? No. Patient's initial sepsis screen is negative. Risk Assessment: Do you want to hurt yourself or someone else? Patient reports no desire to harm self or others. Onset of symptoms was October 25, 2024. 03:10 Method Of Arrival: Wheelchair ha1 03:10 Acuity: MELANY 3 ha1 Triage Assessment: 03:10 General: Appears uncomfortable, Behavior is calm, cooperative. Neuro: Level of ha1 Consciousness is awake, alert, obeys commands, Oriented to person, place, time, situation. Cardiovascular: Patient's skin is warm and dry. Respiratory: Airway is patent Respiratory effort is even, unlabored, Respiratory pattern is regular, symmetrical. Historical: - Allergies: 03:10 PENICILLINS; ha1 03:10 Macrobid; ha1 03:10 Codeine; ha1 - PMHx: 03:10 Diabetes mellitus; Hypertensive disorder; COPD; Atrial fibrillation; Obesity; ha1 - PSHx: 03:10 HEART CATH; ha1 - Immunization history:: Adult Immunizations up to date. - Infectious Disease History:: Denies. - Social history:: Smoking status: Patient/guardian denies using tobacco, the patient reports quitting approximately 15 years ago. - Family history:: not pertinent. Screenin:32 [facility] ED Fall Risk Assessment (Adult) History of falling in the last 3 months, rg5 including since admission No falls in past 3 months (0 pts) Confusion or Disorientation No (0 pts) Intoxicated or Sedated No (0 pts) Impaired Gait Yes (1 pt) Mobility Assist Device Used Yes (1 pt) Altered Elimination No (0 pt) Score/Fall Risk Level 0 - 2 = Low Risk Oriented to surroundings, Maintained a safe environment, Hourly rounding (assess needs \T\ fall precautionary measures) done. Abuse screen: Denies threats or abuse. Nutritional screening: No deficits noted. Tuberculosis screening: No symptoms or risk factors identified. Assessment: 03:32 General: Appears in no apparent distress. Behavior is calm, cooperative, appropriate rg5 for age. Pain: Denies pain. Neuro: Level of Consciousness is awake, alert, obeys commands, Oriented to person, place, time. Cardiovascular: Denies chest pain, Patient's skin is warm and dry. Rhythm is sinus rhythm. Respiratory: Airway is patent Trachea midline Respiratory effort is even, unlabored, Respiratory pattern is regular, symmetrical, Breath sounds are clear. GI: Abdomen is round non-distended, Abd is soft and non tender. : No signs and/or symptoms were reported regarding the genitourinary system. EENT: No deficits noted. Derm: Reports a knot on on the post surgical site right groin area. Musculoskeletal: Circulation, motion, and sensation intact. Range of motion: intact in all extremities. 04:37 Reassessment: No changes from previously documented assessment. Patient and/or family rg5 updated on plan of care and expected duration. Pain level reassessed. 05:30 Reassessment: No changes from previously documented assessment. Patient and/or family rg5 updated on plan of care and expected duration. Pain level reassessed. Patient is alert, oriented x 3, equal unlabored respirations, skin warm/dry/pink. 06:36 Reassessment: No changes from previously documented assessment. Patient and/or family rg5 updated on plan of care and expected duration. Pain level reassessed. Patient is alert, oriented x 3, equal unlabored respirations, skin warm/dry/pink. Vital Signs: 03:10 BP 156 / 74; Pulse 74; Resp 18 S; Temp 98.1; Pulse Ox 95% on R/A; Weight 136.08 kg; ha1 Height 6 ft. 0 in. ; 03:31 BP 152 / 77; Pulse 86; Resp 17; Pulse Ox 97% on R/A; Height 6 ft. 3 in. ; Pain 0/10; rg5 04:36 BP 160 / 92; Pulse 85; Resp 19; Pulse Ox 98% on R/A; rg5 05:26 BP 143 / 75; Pulse 72; Resp 17; Temp 98; Pulse Ox 97% on R/A; Pain 0/10; rg5 06:36 BP 138 / 77; Pulse 75; Resp 16; Temp 98; Pulse Ox 97% on R/A; Pain 0/10; rg5 03:10 Body Mass Index 40.69 (136.08 kg, 190.5 cm) ha1 03:31 Pain Scale: Adult rg5 05:26 Pain Scale: Adult rg5 06:36 Pain Scale: Adult rg5 [place] Coma Score: 10/26 01:33 Eye Response: spontaneous(4). Motor Response: obeys commands(6). Verbal Response: sp4 oriented(5). Total: 15. ED Course: 10/25 03:00 Patient arrived in ED. gm2 03:11 Rylan Almonte, CESARIO is Primary Nurse. rg5 03:30 Arm band placed on. rg5 03:32 Musa Mayo MD is Attending Physician. sp4 03:32 Patient has correct armband on for positive identification. Placed in gown. Bed in low rg5 position. Call light in reach. Side rails up X 1. Door closed. Noise minimized. Warm blanket given. Verbal reassurance given. 03:32 No provider procedures requiring assistance completed. rg5 04:02 Triage completed. ha1 05:19 Extremity Venous Uni Ltd US In Process Unspecified. EDMS 05:20 Lower Extremity Artery Uni Ltd US In Process Unspecified. EDMT 05:28 Provided Education on: POST ER CARE. rg5 05:28 Patient did not have IV access during this emergency room visit. rg5 Administered Medications: No medications were administered Medication: 03:32 VIS not applicable for this client. rg5 Outcome: 07:06 Discharge ordered by . sp4 07:10 Condition: stable rg5 07:10 Discharged to home ambulatory, rg5 07:10 Discharge instructions given to patient, Instructed on discharge instructions, follow up and referral plans. 07:12 Patient left the ED. rg5 Signatures: Dispatcher [employer] Jenny Sheridan RN RN ha1 Musa Mayo MD MD sp4 Yue Burch gm2 Rylan Almonte, CESARIO RN rg5
--- NOTE | 2024-10-25 07:07 | EDPHYS ---
Physician Documentation [facility] Name: Erik Bobby Age: 73 yrs Sex: Male : 1950 Arrival Date: 10/25/2024 Time: 02:42 Bed 18 Private MD: ED Physician Musa Mayo HPI: 10/25 03:32 This 73 yrs old Male presents to ER via Unassigned with complaints of Knot on sp4 majo and is moving. 10/26 01:33 Patient please hematoma and not to the right groin after arterial puncture 2 days ago sp4 at the [facility]. Patient received arterial puncture in the right femoral artery secondary to ablation which was done with endovascular approach.. Historical: - Allergies: 10/25 03:10 PENICILLINS; ha1 03:10 Macrobid; ha1 03:10 Codeine; ha1 - PMHx: 03:10 Diabetes mellitus; Hypertensive disorder; COPD; Atrial fibrillation; Obesity; ha1 - PSHx: 03:10 HEART CATH; ha1 - Immunization history:: Adult Immunizations up to date. - Infectious Disease History:: Denies. - Social history:: Smoking status: Patient/guardian denies using tobacco, the patient reports quitting approximately 15 years ago. - Family history:: not pertinent. ROS: 10/26 01:33 Constitutional: Negative for fever, chills, and weight loss, positive hematoma and not sp4 to the right groin All other systems are negative, Exam: 01:33 Constitutional: This is a well developed, well nourished patient who is awake, alert, sp4 and in no acute distress. Head/Face: Normocephalic, atraumatic. Eyes: Pupils equal round and reactive to light, extra-ocular motions intact. Lids and lashes normal. Conjunctiva and sclera are not injected. Cornea within normal limits. Periorbital areas with no swelling, redness, or edema. ENT: Nares patent. No nasal discharge, no septal abnormalities noted. Tympanic membranes are normal and external auditory canals are clear. Oropharynx with no redness, swelling, or masses, exudates, or evidence of obstruction, uvula midline. Mucous membranes moist. Neck: Trachea midline, no thyromegaly or masses palpated, and no cervical lymphadenopathy. Supple, full range of motion without nuchal rigidity, or vertebral point tenderness. Chest/axilla: Normal chest wall appearance and motion. Nontender with no deformity. No lesions are appreciated. Cardiovascular: Regular rate and rhythm with a normal S1 and S2. No gallops, murmurs, or rubs. Normal PMI, no JVD. No pulse deficits. Respiratory: Lungs have equal breath sounds bilaterally, clear to auscultation and percussion. No rales, rhonchi or wheezes noted. No increased work of breathing, no retractions or nasal flaring. Abdomen/GI: Soft, with normal bowel sounds. No distension or tympany. No guarding or rebound. No evidence of tenderness throughout. Back: No spinal tenderness. No costovertebral tenderness. Male : Normal genitalia with no discharge or lesions. Skin: Warm, dry with normal turgor. Normal color with no rashes, no lesions, and no evidence of cellulitis. MS/ Extremity: Pulses equal, no cyanosis. Neurovascular intact. Full, normal range of motion. Positive right groin hematoma with right groin femoral pulse Neuro: Awake and alert, GCS 15, oriented to person, place, time, and situation. Cranial nerves II-XII grossly intact. Motor strength 5/5 in all extremities. Sensory grossly intact. Psych: Awake, alert, with orientation to person, place and time. Behavior, mood, and affect are within normal limits 01:33 ECG was reviewed by the Attending Physician. EKG at 0 428 normal sinus rhythm rate 70 sp4 otherwise normal EKG. Vital Signs: 10/25 03:10 BP 156 / 74; Pulse 74; Resp 18 S; Temp 98.1; Pulse Ox 95% on R/A; Weight 136.08 kg; ha1 Height 6 ft. 0 in. ; 03:31 BP 152 / 77; Pulse 86; Resp 17; Pulse Ox 97% on R/A; Height 6 ft. 3 in. ; Pain 0/10; rg5 04:36 BP 160 / 92; Pulse 85; Resp 19; Pulse Ox 98% on R/A; rg5 05:26 BP 143 / 75; Pulse 72; Resp 17; Temp 98; Pulse Ox 97% on R/A; Pain 0/10; rg5 06:36 BP 138 / 77; Pulse 75; Resp 16; Temp 98; Pulse Ox 97% on R/A; Pain 0/10; rg5 03:10 Body Mass Index 40.69 (136.08 kg, 190.5 cm) ha1 03:31 Pain Scale: Adult rg5 05:26 Pain Scale: Adult rg5 06:36 Pain Scale: Adult rg5 [place] Coma Score: 10/26 01:33 Eye Response: spontaneous(4). Motor Response: obeys commands(6). Verbal Response: sp4 oriented(5). Total: 15. MDM: 10/25 03:40 Medical Screening Exam initiated sp4 06:57 ED course: PROCEDURE: US Duplex Right Lower ExtremityArteries CLINICAL INDICATION: The sp4 patient is 73 years old and is Male; right groin hematoma Bed Name: 18 TECHNIQUE: Real-time duplex ultrasound scan of the right lower extremity arteries integrating B-mode two-dimensional vascular structure, Doppler spectral analysis and color flow Doppler imaging. COMPARISON: No relevant prior studies available. FINDINGS: RIGHT COMMON FEMORAL ARTERY: Peak systolic velocity in the right common femoral artery is 170 cm/s. Normal waveform. No acute findings. RIGHT SUPERFICIAL FEMORAL ARTERY: Peak systolic velocity in the right superficial femoral artery is 155 cm/s. Normal waveform. No acute findings. RIGHT POPLITEAL ARTERY: No acute findings. Normal waveform. Peak systolic velocity in the right popliteal artery is 62 cm/s. RIGHT CALF/FOOTARTERIES: No acute findings. Normal waveform. Peak systolic velocity in the right posterior tibial artery is 93 cm/s. Peak systolic velocity in the right dorsalis pedis artery is 100 cm/s. SOFT TISSUES: Subcutaneous edema demonstrated in the subcutaneous tissues below the right knee. IMPRESSION: Subcutaneous edema demonstrated below the right knee. No acute findings in the right lower extremity arteries. Electronically signed by: Freeman Freedman MD 10/25/2024 06:44 AM. ED course: EXAM: US Duplex Right Lower Extremity Veins CLINICAL HISTORY: The patient is 73 years old and is Male; right groin hematoma TECHNIQUE: Real-time duplex ultrasound scan of the right lower extremity veins integrating B-mode two-dimensional vascular structure, Doppler spectral analysis, color flow Doppler imaging and Impression. COMPARISON: No relevant prior studies available. FINDINGS: Deep veins: Unremarkable. No DVT in the visualized common femoral, femoral, or popliteal veins. The veins demonstrate normal color flow, are normally compressible where visualized, with normal phasic flow and/or augmentation response. Soft tissues: Small nonspecific 2.8 cm fluid collection in the right groin. Soft tissue edema in the calf. IMPRESSION: No evidence of DVT in the right lower extremity veins. Electronically signed by: Abhijeet Hernandez MD 10/25/2024 . 10/26 01:35 Differential diagnosis: contusion, abrasion, tendonitis. Data reviewed: vital signs, sp4 nurses notes, EKG, radiologic studies, ultrasound. Consideration of Admission/Observation Escalation of care including admission/observation considered. 10/25 04:36 Order name: Extremity Venous sickweather sp4 10/25 04:36 Order name: Lower Extremity Artery sickweather sp4 10/25 04:36 Order name: EKG; Complete Time: 04:37 sp4 10/25 04:36 Order name: EKG - Nurse/Tech; Complete Time: 04:38 sp4 EC/28 04:28 Rate is 70 beats/min. Rhythm is regular, Normal Sinus Rhythm. QRS [place] is Normal. MI sp4 interval is normal. QRS interval is normal. QT interval is normal. No Q waves. T waves are Normal. No ST changes noted. Clinical impression: No evidence of ischemia. Interpreted by me. Reviewed by me. Administered Medications: No medications were administered Disposition: 10/26 01:35 Chart complete. sp4 Disposition Summary: 10/25/24 07:06 Discharge Ordered Notes: Location: Home sp4 Problem: new sp4 Symptoms: have improved sp4 Condition: Stable sp4 Diagnosis - Acute right groin hematoma, Acute hematoma at the arterial puncture site at right sp4 common femoral artery Followup: sp4 - With: Private Physician - When: 7 - 10 days - Reason: Recheck today's complaints Discharge Instructions: - Discharge Summary Sheet sp4 - Hematoma, [id number] sp4 Forms: - Patient Portal Instructions sp4 Signatures: Dispatcher [employer] EDMS Jenny Brooks RN RN ha1 Musa Mayo MD MD sp4 Corrections: (The following items were deleted from the chart) 10/25 04:39 04:39 Lower Extremity Artery Uni Ltd+[email or web address] ordered. EDMS EDMS
[2024-10-25 07:28] VITALS: TEMP 98; O2SAT 97
[2024-10-25 07:29] VITALS: BP 138/77
--- NOTE | 2024-10-28 14:18 | EKG ---
Test Date: 2024-10-25 Test Time: 04:27:44 Turf Grower: MARCELINO MEASUREMENT RESULTS: Intervals: Rate: 71 CO: QRSD: 82 QT: 380 QTc: 412 [place]: P: CO: QRS: 12 T: 63 INTERPRETIVE STATEMENTS: Sinus rhythm Low voltage QRS Abnormal ECG No previous ECG available for comparison Electronically Signed On 10-28-24 14:15:05 CORRECTIONAL OFFICER CHIEF by Hollis Jauregui
--- NOTE | 2024-10-29 10:22 | EKG ---
Test Date: 2024-10-25 Test Time: 04:28:40 [employer] Service Mechanic: MARCELINO MEASUREMENT RESULTS: Intervals: Rate: 70 OR: QRSD: 84 QT: 384 QTc: 414 [place]: P: OR: QRS: 11 T: 65 INTERPRETIVE STATEMENTS: Accelerated Junctional rhythm Low voltage QRS Abnormal ECG Compared to ECG 10/25/2024 04:27:44 Accelerated junctional rhythm now present Sinus rhythm no longer present Electronically Signed On 10-29-24 10:20:51 NEEDLE CONTROL CHENILLER by Dann Worthington
== END 2024-10-25 07:12 | disposition home or self-care (01) ==
LOC: ER 02:42
DX: M79.81 Nontraumatic hematoma of soft tissue (principal); I97.638 Postprocedural hematoma of a circulatory system organ or structure following other circulatory system procedure
CPT/HCPCS: 93005; 93926; 93971; 99283